=== PATIENT | male | born 1975 | race Caucasian/White ===

== ENCOUNTER 2018-07-22 21:40 | Observation (INO) | payer SELFPAY ==
[~2018-07-22] VITALS: Ht 182.9 cm; Wt 97.5 kg
[2018-07-22] MEDS ORDERED: ONDANSETRON HCL INJ 2MG/ML 2ML 2 MG/ML VIAL IV STA (22:19)
[2018-07-22] MEDS ORDERED: MORPHINE SULFATE INJ 4 MG/ML INJ 1ML IV PRN (22:30)
[2018-07-23] VITALS (9 sets, daily range): BP systolic 136–160; BP diastolic 75–95
--- NOTE | 2018-07-23 00:11 | Diagnostic Imaging Report ---
EXAM: CT Chest without and WITH contrast 07/22/2018 12:00 AM INDICATION: Chest pain radiating to the back. Concern for dissection. COMPARISON: None TECHNIQUE: Chest was scanned utilizing a multidetector helical scanner from the lung apex through the level of the adrenal glands without and with administration of IV contrast. Coronal and sagittal reformations were obtained. Dissection protocol was performed. IV CONTRAST: 100 mL of Isovue-370 RADIATION DOSE: Total DLP: 1694.03 mGy*cm Estimated effective dose: (DLP x 0.014 x size factor) mSv COMPLICATIONS: None 3-D reconstructions are available at this time due to the lack of software; [facility] FINDINGS: LINES/ TUBES: None. LUNGS AND AIRWAYS: The lungs are unremarkable. No filling defects within the pulmonary arterial system to the segmental level. Bilateral dependent atelectasis. Airways are normal. PLEURA: The pleural spaces are clear. HEART AND MEDIASTINUM: The thyroid gland is normal. Mildly prominent left hilar lymph node measuring 1.5 x 1.0 cm on images 60 series 3. Mildly prominent subcarinal lymph nodes. The heart is normal in size. The left ventricular myocardium is somewhat prominent with the intraventricular septum measuring up to 2.4 cm in thickness on axial images 75 series 3. There is prominence of the papillary muscles. There is no pericardial effusion. The aorta is normal in caliber without dissection. UPPER ABDOMEN: Limited non-contrast views of the upper abdomen show no abnormality within the visualized liver, spleen, pancreas, or kidneys. The adrenal glands are normal. BONES: No acute osseous abnormality. Reconstruction artifact on the sagittal scans, with abnormal appearance of the sternal manubrium. Lower thoracic Schmorl nodes. SOFT TISSUES: Unremarkable. IMPRESSION: 1. No acute thoracic anomaly. No evidence of aortic dissection as per clinical query. 2. Concern for left ventricular hypertrophy. Recommend cardiology consultation for possible further evaluation with echocardiogram. 3. Mild subcarinal and left hilar lymphadenopathy, possibly reactive Signed by: Dr. Jennifer Fitzpatrick M.D. on 07/22/2018 11:54 PM
[2018-07-23] MEDS ORDERED: HYDRALAZINE HCL 20 MG/ML VIAL IV ONE (00:31)
--- OUTSIDE RECORDS SUMMARY | 2018-07-23 00:56 | XMS REPORT ---
Author Author [facility] Address Unknown Phone Unavailable Care Team Providers Care Marketing Account Manager Name Role Phone Lubna FLORES Unavailable Unavailable Problems This patient has no known problems. Allergies, Adverse Reactions, Alerts This patient has no known allergies or adverse reactions. Medications This patient has no known medications. Results Test Description Test Time Test Comments Text Results Atomic Results Result Comments CT ANGIO CHEST-HOPD 2018-07-22 23:41:00 [place] [address] Patient Name: ANTHONY CONLEY MR #: [id number] : 1975 Age/Sex: 42/M Req #: [id number] Adm Physician: Ordered by: PARAM FLORES MD Report #: [id number] Location: [facility] Room/Bed: Procedure: [id number] HOPD/CT ANGIO CHEST-HOPD Exam Date: 07/22/18 Exam Time: 2301 REPORT STATUS: Signed EXAM: CT Chest without and WITH contrast 07/22/2018 12:00 AM INDICATION: Chest pain radiating to the back. Concern for dissection. COMPARISON: None TECHNIQUE: Chest was scanned utilizing a multidetector helical scanner from the lung apex through the level of the adrenal glands without and with administration of IV contrast. Coronal and sagittal reformations were obtained. Dissection protocol was performed. IV CONTRAST: 100 mL of Isovue-370 RADIATION DOSE: Total DLP: 1694.03 mGy*cm Estimated effective dose: (DLP x 0.014 x size factor) mSv COMPLICATIONS: None 3-D reconstructions are available at this time due to the lack of software; [facility] FINDINGS: LINES/ TUBES: None. LUNGS AND AIRWAYS: The lungs are unremarkable. No filling defects within the pulmonary arterial system to the segmental level. Bilateral dependent atelectasis. Airways are normal. PLEURA: The pleural spaces are clear. HEART AND MEDIASTINUM: The thyroid gland is normal. Mildly prominent left hilar lymph node measuring 1.5 x 1.0 cm on images 60 series 3. Mildly prominent subcarinal lymph nodes. The heart is normal in size. The left ventricular myocardium is somewhat prominent with the intraventricular septum measuring up to 2.4 cm in thickness on axial images 75 series 3. There is prominence of the papillary muscles. There is no pericardial effusion. The aorta is normal in caliber without dissection. UPPER ABDOMEN: Limited non-contrast views of the upper abdomen show no abnormality within the visualized liver, spleen, pancreas, or kidneys. The adrenal glands are normal. BONES: No acute osseous abnormality. Reconstruction artifact on the sagittal scans, with abnormal appearance of the sternal manubrium. Lower thoracic Schmorl nodes. SOFT TISSUES: Unremarkable. IMPRESSION: 1. No acute thoracic anomaly. No evidence of aortic dissection as per clinical query. 2. Concern for left v entricular hypertrophy. Recommend cardiology consultation for possible further evaluation with echocardiogram. 3. Mild subcarinal and left hilar lymphadenopathy, possibly reactive Signed by: Dr. Jennifer Anne M.D. on 07/22/2018 11:54 PM Dictated By: JOANNE ANNE MD, MD [id number] Transcribed By: SHADI on 07/22/18 7822 COPY TO: PARAM FLORES MD
--- NOTE | 2018-07-23 02:00 | NUR ---
PATIENT CAME VIA STRETCHER FROM OUTPATIENT. NO PAIN OR DISTRESS NOTED. CALL LIGHT WITHIN REACH.
[2018-07-23 03:18] LABS: CREATINE KINASE MB 3.9 ng/mL (0-5.0)
--- NOTE | 2018-07-23 07:45 | NUR ---
GAVE REPORT TO ONCOMING NURSE. NO PAIN OR DISCOMFORT. CALL LIGHT WITHIN REACH.
--- NOTE | 2018-07-23 11:20 | NUR ---
attempted to reach Dr Cedillo to report elevated troponin level, message left and awaiting call back for further instructions.
[2018-07-23 11:27] LABS: CREATINE KINASE MB 11.9 ng/mL (0-5.0)
[2018-07-23] MEDS ORDERED: ACETAMINOPHEN 325 MG TAB PO PRN (14:45)
[2018-07-23] MEDS ORDERED: ASPIRIN 81 MG CHEW TAB PO ONE (14:45)
[2018-07-23] MEDS ORDERED: HYDROCODONE/APAP 5MG-325MG TAB PO PRN (14:45)
[2018-07-23] MEDS: ENOXAPARIN SODIUM INJ 100 MG/ML SYR SC SCH ×2 (15:43→21:24)
[2018-07-23 15:47] LABS: BASOPHILS # (AUTO) 0.1 (0.0-0.1); BASOPHILS % 1.1 % (0.0-1.0); EOSINOPHILS # (AUTO) 0.1 (0.0-0.4); EOSINOPHILS % 1.8 % (0.0-6.0); HEMATOCRIT 42.1 % (38.2-49.6); HEMOGLOBIN 14.5 g/dL (14.0-18.0); LYMPHOCYTES # (AUTO) 2.3 (1.0-3.2); LYMPHOCYTES % 28.7 % (18.0-39.1); MEAN CORPUSCULAR HEMOGLOBIN 28.9 pg (28-32); MEAN CORPUSCULAR HGB CONC 34.4 g/dL (31-35); MONOCYTES # (AUTO) 0.6 (0.2-0.8); MONOCYTES % 7.1 % (4.4-11.3); NEUTROPHILS # (AUTO) 4.8 (2.1-6.9); PLATELET COUNT 339 x10e3/uL (140-360); RED BLOOD COUNT 5.01 x10e6/uL (4.3-5.7); RED CELL DISTRIBUTION WIDTH 13.2 % (11.7-14.4)
[2018-07-23 16:07] LABS: ANION GAP 9.8 mmol/L (8-16); BLOOD UREA NITROGEN 12 mg/dL (7-26); BUN/CREATININE RATIO 14 (6-25); CALCIUM 8.4 mg/dL (8.4-10.2); CARBON DIOXIDE 27 mmol/L (22-29); CHLORIDE 101 mmol/L (98-107); CREATININE, SERUM 0.85 mg/dL (0.72-1.25); EST GLOMERULAR FILTRATION RATE > 60 ML/MIN (60-); GLUCOSE 151 mg/dL (74-118); POTASSIUM 3.8 mmol/L (3.5-5.1); SODIUM 134 mmol/L (136-145)
[2018-07-23 16:20] LABS: CHOL/HDL RATIO 6.9 (3.9-4.7); CHOLESTEROL 268 MD/DL (0-199); HDL CHOLESTEROL 39 MG/DL (40-60); TRIGLYCERIDES 499 MG/DL (0-149)
[2018-07-23 16:39] LABS: THYROID STIMULATING HORMONE 0.738 uIU/mL (0.350-4.940)
--- NOTE | 2018-07-23 19:20 | NUR ---
rounded with welder 2nd shift nurse, patient aware of change. Call gregg within reach and bed in lowest position
--- NOTE | 2018-07-23 19:29 | NUR ---
Report received and walking rounds complete. Pt resting in bed and in no apparent distress. Pt family at bedside. All safety measures ensured and pt call gregg near.
[2018-07-23] MEDS ORDERED: ATORVASTATIN 20 MG TAB PO SCH (21:00)
[2018-07-23 21:02] LABS: CREATINE KINASE MB 7.5 ng/mL (0-5.0)
--- NOTE | 2018-07-23 21:15 | NUR ---
Pt took shower
[2018-07-23] MEDS: METOPROLOL SUCCINATE 25 MG TAB XL PO SCH (21:24)
--- NOTE | 2018-07-23 23:42 | History and Physical ---
CHIEF COMPLAINT: Chest pain. HISTORY OF PRESENT ILLNESS: This is a 42-year-old male, morbidly obese with known hypertension, very noncompliant with seeing a physician. He is also a chronic smoker and does not take any medications, was transferred from the [facility] due to complaints of chest pain that has been ongoing for the last two days. The patient with radiation to the left shoulder and arm. He reports he was pretty constant in pain. During my evaluation, he had no complaints of chest pain. No associated nausea or vomiting. He has never experienced any kind of chest pain like this before. He does not have any family history of any heart disease. The patient is seen and evaluated at bedside on the medical floor. Currently, he is doing well with no other issues at this time. His troponin was found to be elevated and Cardiology was consulted. REVIEW OF SYSTEMS: Pertinent Positive: Chest pain. Pertinent Negative: Denies any palpitation, nausea, vomiting, diarrhea, dysuria, hematuria, frequency, urgency, lightheadedness, dizziness, abdominal pain, headaches, shortness of breath, cough, congestion, fever, or any other complaints. Rest of 14-point review of systems has been reviewed with the patient and is negative. ALLERGIES: NO KNOWN DRUG ALLERGIES. HOME MEDICATIONS: Reports none. PAST MEDICAL HISTORY: Chronic smoker, hypertension, not on any medications. PAST SURGICAL HISTORY: Reports none. FAMILY HISTORY: Hypertension and diabetes. Family history of heart disease. SOCIAL HISTORY: He is a smoker and a social drinker. No drugs. PHYSICAL EXAMINATION: VITAL SIGNS: Temperature is 96.5, pulse 73, respiratory rate is 16, blood pressure 137/91, pulse ox 99% on room air. GENERAL: No acute distress. Alert and oriented x3. Cooperative on examination. HEENT: Head is normocephalic, atraumatic. Eyes, pupils equal, round, and reactive to light bilaterally. Extraocular movements are intact bilaterally. Throat, no evidence of erythema or exudate in the posterior pharynx. Has poor dentition. NECK: Supple. Good range of motion. PULMONARY: Clear to auscultation bilaterally. No wheezes, no rales, no rhonchi, no crackles appreciated. CARDIOVASCULAR: Positive S1, S2. No murmurs, rubs, or gallops appreciated. GI: Abdomen is soft, nondistended, and nontender to palpation. Bowel sounds present. MUSCULOSKELETAL: Strength is 5/5 throughout. LABORATORY DATA: Lab findings show CBC is pending. Chemistry has been ordered as well. CK is 189, CK-MB is 11.9. His troponin is 0.73. IMAGING STUDIES: CTA of the chest shows no evidence of aortic dissection. There is no evidence of any pulmonary embolism also seen on CTA of the chest. It shows some mild subcarinal left hilar adenopathy and . He will need outpatient followup with repeat CT or chest x-ray as an outpatient. Discussed with the patient. IMPRESSION: 1. Chest pain, likely to be typical in nature with [id number] myocardial infarction. 2. Chronic smoker. 3. Morbid obesity. 4. Hypertension. PLAN: At this time, his troponins were found to be positive. We will load him up with full-dose Lovenox at 1 mg/kg q.12 hours, given 325 of aspirin chewable x1, daily 81 mg of aspirin. Start on Lipitor. We will get lipid panel, hemoglobin A1c, and his TSH level. Cardiology has been consulted and notified as well. I discussed the findings with the patient at bedside with the nurse present. He verbalized understanding. I also ordered a 2D echo as well. MD RAMO Plummer/ELISEO /[id number]
[2018-07-24] VITALS (23 sets, daily range): BP systolic 131–205; BP diastolic 69–120
--- NOTE | 2018-07-24 00:57 | Consultation ---
DATE OF CONSULTATION: 07/23/2018 Cardiology Consultation CONSULTING PHYSICIAN: Agustín Hassan M.D., Interventional Cardiology. REASON FOR CONSULTATION: Chest pain. HISTORY OF PRESENT ILLNESS: Mr. Barajas is a 42-year-old man with history of hypertension, dyslipidemia and active smoking, who presents to [facility] via ER with complaints of stuttering chest discomfort ongoing for at least several weeks; however, worsening over the last 3 days. Episodes worsen with exertion as well as with deep inspiration and radiate to neck and back, described as pressure-like, moderate severity. He has noted significantly elevated blood pressure lately and has been noncompliant with his angiotensin receptor sheri presenting on initial admission with a blood pressure 200/108. He is currently symptom free. His desk monitor shows sinus rhythm. He has serial cardiac enzymes, shown peak of CK 189, CK-MB of 11.9, troponin I of 0.73 with most recent cardiac enzymes within normal range. His creatinine was 0.8. His triglycerides 499, his total cholesterol 268 with HDL of 39. His EKG shows sinus rhythm with left ventricular hypertrophy and repolarization abnormalities. A CT chest was done showing no acute thoracic abnormality. No evidence of aortic dissection. There was a concern for left ventricular hypertrophy per CT and mild subcarinal and left hilar lymphadenopathy, which was thin, possibly reactive. REVIEW OF SYSTEMS: A 12-system review is negative except for as noted above. ALLERGIES: NO KNOWN DRUG ALLERGIES. PAST MEDICAL HISTORY: Hypertension and dyslipidemia. SOCIAL HISTORY: Active smoker, a pack lasts approximately 3 days. Denies alcohol or drugs. FAMILY HISTORY: Significant for hypertension. PHYSICAL EXAMINATION: VITAL SIGNS: Temperature 96.3, heart rate 69, respiratory rate 16, blood pressure 136/75, and O2 saturation 98% on room air. GENERAL: In no acute distress, alert. NECK: No JVD. CHEST: Clear to auscultation. CARDIOVASCULAR: Regular rate and rhythm. Normal S1 and S2. No S3 or S4. ABDOMEN: Soft and nontender. EXTREMITIES: No edema. Warm distal extremities. MEDICATIONS: Cardiovascular medications reviewed. Lovenox 100 mg every 12 hours, atorvastatin 40 mg at bedtime, and aspirin 325 mg daily. LABORATORY DATA: Studies reviewed. Cardiac enzymes as described above, so the lipid panel as described above. TSH 0.7, sodium 134, potassium 3.8, chloride 101, bicarbonate 27, BUN 12, creatinine 0.85, and glucose 151. White blood cells 7.9, hemoglobin 14.5, and platelets 339. ASSESSMENT: 1. [id number] myocardial infarction versus type 2 myocardial infarction in the setting of hypertensive emergency. 2. Uncontrolled hypertension. 3. Dyslipidemia. 4. Active smoker. RECOMMENDATIONS: 1. Obtain echocardiogram. 2. Add beta-sheri and adjust antihypertensives. 3. Continue statin and aspirin. 4. Lovenox for now. 5. Discussed coronary angiography and possible coronary intervention. Over the ensuing hospital stay, we will arrange based on prestressed concrete laborer availability. Indications, alternatives, risks, and benefits have been discussed with the patient as well as with family members. MD SABRINA Wells/ELISEO /[id number]
[2018-07-24 05:52] LABS: CHOL/HDL RATIO 7.5 (3.9-4.7); CHOLESTEROL 276 MD/DL (0-199); HDL CHOLESTEROL 37 MG/DL (40-60); TRIGLYCERIDES 884 MG/DL (0-149)
--- NOTE | 2018-07-24 07:11 | NUR ---
Report given and walking rounds complete.
--- NOTE | 2018-07-24 07:30 | NUR ---
RN performed comprehensive assessment on patient. Alert and oriented x3 with the vital signs WNL. Patient reported no pain. Discussed with patient on diet regarding lowering the amount of fatty food consumption. Patient verbalized understanding. Patient reported no chest pain or any other health concerns.
[2018-07-24] MEDS: ENOXAPARIN SODIUM INJ 100 MG/ML SYR SC SCH (08:41)
[2018-07-24] MEDS: METOPROLOL SUCCINATE 25 MG TAB XL PO SCH (08:41)
[2018-07-24] MEDS ORDERED: ASPIRIN 325 MG TAB PO SCH (09:00)
[2018-07-24 10:33] LABS: AMPHETAMINES SCREEN,URINE NEGATIVE (NEGATIVE); BENZODIAZEPINES SCREEN,URINE NEGATIVE (NEGATIVE); PHENCYCLIDINE SCREEN,URINE NEGATIVE (NEGATIVE)
--- NOTE | 2018-07-24 12:30 | NUR ---
Dr. Cedillo at bedside, patient stated he has sleep apnea disregarding the real issue which is the possible heart attack. Patient called his mother to know which tests should be performed. Patient would like to go with the heart cath and echocardiogram.
--- NOTE | 2018-07-24 13:14 | NUR ---
Soto RN and Junior RN educated patient on proper dietary due to high triglycerides, low HDL, high LDL, and high cholesterol. Verbalized understanding. Need reinforcement on teaching.
--- NOTE | 2018-07-24 13:40 | NUR ---
GAVE PACKET OF INFORMATION WITH COMMUNITY [facility] FOR ASSISTANCE WITH LOW TO NO INCOME TO PATIENT. RESOURCES THAT PATIENT MAY BE ABLE TO FOLLOW UP UPON DISCHARGE. PT EDUCATED ON EACH RESOURCE AND UNDERSTANDING HOW TO FOLLOW UP TO SEE IF QUALIFIED FOR EACH RESOURCE.
[2018-07-24] MEDS ORDERED: SODIUM CHLORIDE 0.9% 250ML 250 ML IV ONE (14:45)
[2018-07-24] MEDS ORDERED: SODIUM CHLORIDE 0.9% 1000ML 1,000 ML IV SCH ×2 (14:45→19:23)
--- NOTE | 2018-07-24 14:49 | NUR ---
SOCIAL WORK INITIAL ASSESSMENT Blind Hooker to bedside to discuss plan of care with patient/family. CM/SW role and care transitions discussed. Anticipated discharge plan discussed along with duration of care. CM/SW discussed patients right to make decisions in care. CM/SW work hours given. Patient lives: HOUSE WITH FAMILY Admit/Transfer: VIA ED POA/Emergency contact: MOTHER ANTHONY [phone] Current/Previous Home Health: NONE PCP/Follow-up Care: [facility] Current/Previous DME: NONE Other Services: NONE Employment Status: [employer] Areas of Concerns: NONE Referral Needs: NONE Education Needs: NONE IMM/BLUNT given and signed (if applicable): NA Goal for discharge: RETURN TO COMMUNITY WITH RESOURCE PACKAGE CM/SW left business card at the bedside with contact information. Name and number was also written on the patients whiteboard. Patient verbalized understanding of discussion. CM will follow-up with ongoing discharge and transition of care needs.
--- NOTE | 2018-07-24 15:10 | NUR ---
Soto RN and Junior RN spoke with patient regarding the heart cath procedure due to reduced ejection fraction rate. Patient is placed NPO diet. Patient given chlorohexidine to clean self on wrists and groins. Patient signed the informed consent. Questions answered regarding procedure, risks, and benefits. No further questions asked.
--- NOTE | 2018-07-24 16:56 | Progress Note ---
DATE: 07/24/2018 Medicine Progress Note SUBJECTIVE: The patient is doing well today with no complaints. Denies any chest pain. Cardiology evaluated the patient . PHYSICAL EXAMINATION: VITAL SIGNS: Temperature 96, pulse 84, respiratory rate 16, blood pressure 132/76, and pulse ox 95% on room air. GENERAL: Not in acute distress. Alert and oriented x3. Cooperative on examination. HEENT: Head is normocephalic and atraumatic. Eyes, pupils equal, reactive to light bilaterally. Extraocular movements are intact bilaterally. Throat, no evidence of erythema or exudates in the posterior pharynx. Has poor dentition. NECK: Supple. Good range of motion. PULMONARY: Clear to auscultation bilaterally. No wheezing, rales, or rhonchi. No crackles appreciated. CARDIOVASCULAR: Positive S1, S2. No murmurs, rubs, or gallops appreciated. ABDOMEN: Soft, nondistended, and nontender to palpation. Bowel sounds present. MUSCULOSKELETAL: Strength is 5/5 throughout. No evidence of any muscle deficits on examination. No weakness appreciated. NEUROLOGICAL: Cranial nerves II through XII grossly intact. No evidence of any neurological deficits on exam. SKIN: Intact. Warm to touch. Good cap refill. PSYCHIATRIC: Normal affect and mood. EXTREMITIES: No edema. Good range of motion throughout. LAB: Findings show white count of 7.9, hemoglobin 14, hematocrit 42, and platelets of 339. Chemistries LDL is extremely high, unable to measure. Triglycerides were high. TSH was 0.65, hemoglobin A1c 6.7. Urine drug screen is negative. IMPRESSION: 1. Non-ST elevation myocardial infarction. 2. Chronic smoker. 3. Morbid obesity. 4. Hypertension. 5. Hyperlipidemia. 6. Medical noncompliance. PLAN: At this time, he is still on full-dose Lovenox, aspirin, and statin. Cardioprotective meds. His hemoglobin A1c is 6.7, he is prediabetic. recommendations by Cardiology. I discussed the case with the patient and nursing staff. 2D echo is pending. MD RAMO Plummer/MODMaribel /[id number]
[2018-07-24] MEDS ORDERED: HEPARIN SOD (PORCINE) 1000 UNIT/ML 30ML ONE (16:58)
[2018-07-24] MEDS ORDERED: MIDAZOLAM HCL 2 MG/2 ML VIAL ONE (16:59)
[2018-07-24] MEDS ORDERED: VERAPAMIL HCL 2.5 MG/ML 2 ML VIAL ONE (16:59)
[2018-07-24] MEDS ORDERED: FENTANYL CITRATE/PF 100MCG/2 ML INJ ONE ×2 (16:59→19:24)
[2018-07-24] MEDS ORDERED: LIDOCAINE HCL 2% LOCAL 20 ML VIAL ONE (16:59)
[2018-07-24] MEDS ORDERED: IOPAMIDOL 300MG/ML 100 ML INFUS..BTL IV ONE (17:00)
[2018-07-24] MEDS ORDERED: HEPARIN SOD/SOD CHLORIDE 2,000 ML ONE (17:00)
[2018-07-24] MEDS ORDERED: NITROGLYCERIN/D5W 200 MCG/ML 250 ML ONE (17:00)
[2018-07-24] MEDS ORDERED: TICAGRELOR 90 MG TABLET ONE (18:07)
[2018-07-24] MEDS ORDERED: ASPIRIN 325 MG TAB ONE (18:07)
[2018-07-24] MEDS ORDERED: IOPAMIDOL 370 MG/ML 200 ML INFUS..BTL INJ ONE (18:59)
--- NOTE | 2018-07-24 19:00 | NUR ---
Report received. Pt still off unit in surgery
--- NOTE | 2018-07-24 19:15 | NUR ---
Received to floating labor gang supervisor recovery room 9, s/p left heart cath with RCA intervention. Patient A,A,O x3, TR band to Right wrist, no drainage noted. Patient c/o chest discomfort 08/20. Dr. Hurtado at bedside, verbal order received to give Fentanyl 25 mcg IV now. BP 205/120, MD ordered to give Hydralazine 10 mg IV. No Hydralazine loaded in the pyxis, pharmacy notified. Patient voided 400CCs of clear yellow urine without difficulty.
--- NOTE | 2018-07-24 19:25 | NUR ---
Hydralazine 10 mg IV given as ordered.
[2018-07-24] MEDS ORDERED: CLOPIDOGREL BISULFATE 75 MG TAB PO ONE (19:30)
[2018-07-24] MEDS ORDERED: CLOPIDOGREL BISULFATE 75 MG TAB PO SCH (19:30)
[2018-07-24] MEDS ORDERED: HYDRALAZINE HCL 20 MG/ML VIAL ONE (21:00)
[2018-07-24] MEDS ORDERED: ATORVASTATIN 40 MG TAB PO SCH (21:00)
--- NOTE | 2018-07-24 21:10 | NUR ---
BP remains elevated at 170/100, Hydralazine 10 mg IV given as ordered.
--- NOTE | 2018-07-24 21:15 | NUR ---
Attempted to remove 2 MLs of air from TR band, bloody drainage noted. 2 MLs of air re-inserted into TR band, will continue to monitor.
--- NOTE | 2018-07-24 21:45 | NUR ---
2 MLs of air removed from TR band, no drainage noted.
--- NOTE | 2018-07-24 22:00 | NUR ---
2 MLs of air removed from TR band, no drainage noted.
--- NOTE | 2018-07-24 22:15 | NUR ---
2 MLs of air removed from TR band, no drainage noted.
--- NOTE | 2018-07-24 22:30 | NUR ---
2 MLs of air removed from TR band, no drainage noted.
--- NOTE | 2018-07-24 22:45 | NUR ---
2 MLs of air removed from TR band, no drainage noted.
--- NOTE | 2018-07-24 23:00 | NUR ---
Remaining 3 MLs of air removed from TR band, no drainage noted. TR band removed, gauze and tegaderm placed to site. Transported to room 186, report to VALENCIA Wadsworth.
--- NOTE | 2018-07-24 23:05 | NUR ---
Pt returned to unit. Pt A&O and in no apparent distress. Vitals stable and pt tele reading at NSR. Pt cath site to R radial arm clean, dry, and intact with splint in place. All safety measures ensured and pt call gregg near.
[2018-07-24] MEDS ORDERED: MORPHINE SULFATE INJ 4 MG/ML INJ 1ML IV PRN (23:45)
[2018-07-25 00:15] VITALS: BP 145/81
--- NOTE | 2018-07-25 03:04 | Progress Note ---
DATE: 07/24/2018 Cardiology Progress Note. SUBJECTIVE: No recurrent symptoms other than short-lived episode of chest discomfort this morning, lasting less than 10 minutes. OBJECTIVE: VITAL SIGNS: Temperature 96 degrees, heart rate 84, blood pressure 134/76, respiratory rate 16, O2 saturation 95%. GENERAL: No acute distress, alert. NECK: No JVD. CHEST: Clear to auscultation. CARDIOVASCULAR: Regular rate and rhythm. Normal S1, S2. ABDOMEN: Soft. EXTREMITIES: No edema. CARDIOVASCULAR MEDICATIONS: Reviewed. Atorvastatin 40 mg at bedtime, aspirin 325 mg daily, Lovenox 100 mg subcu q.12 hours on hold, metoprolol succinate 25 mg daily, clopidogrel 75 mg daily. LABORATORY DATA: Studies reviewed. Creatinine 0.8. Hemoglobin 14.5, platelets 339. Status post coronary angiography and RCA drug-eluting stent PCI. Of note, has residual LCx stenosis. ASSESSMENT: 1. Non-STEMI. 2. Hypertension. 3. Dyslipidemia. 4. Poor compliance. RECOMMENDATIONS: 1. Dual antiplatelet therapy. 2. Creatinine. 3. Beta sheri. 4. Smoking cessation. 5. Outpatient followup for staged coronary revascularization has been advised to the patient as well as family members. Okay to discharge in a.m. MD SABRINA Wells/ELISEO /[id number] MTDD
[2018-07-25 04:31] VITALS: BP 145/83
[2018-07-25 05:41] LABS: BASOPHILS # (AUTO) 0.1 (0.0-0.1); BASOPHILS % 0.7 % (0.0-1.0); EOSINOPHILS # (AUTO) 0.1 (0.0-0.4); EOSINOPHILS % 1.1 % (0.0-6.0); HEMATOCRIT 42.4 % (38.2-49.6); HEMOGLOBIN 14.7 g/dL (14.0-18.0); LYMPHOCYTES # (AUTO) 2.3 (1.0-3.2); LYMPHOCYTES % 21.3 % (18.0-39.1); MEAN CORPUSCULAR HEMOGLOBIN 28.7 pg (28-32); MEAN CORPUSCULAR HGB CONC 34.7 g/dL (31-35); MEAN CORPUSCULAR VOLUME 82.7 fL (81-99); MONOCYTES # (AUTO) 0.8 (0.2-0.8); MONOCYTES % 6.9 % (4.4-11.3); NEUTROPHILS # (AUTO) 7.6 (2.1-6.9); NEUTROPHILS % 69.5 % (38.7-80.0); PLATELET COUNT 339 x10e3/uL (140-360); RED BLOOD COUNT 5.13 x10e6/uL (4.3-5.7); RED CELL DISTRIBUTION WIDTH 13.1 % (11.7-14.4)
[2018-07-25 05:58] LABS: ANION GAP 13.6 mmol/L (8-16); BLOOD UREA NITROGEN 10 mg/dL (7-26); BUN/CREATININE RATIO 13 (6-25); CALCIUM 8.5 mg/dL (8.4-10.2); CARBON DIOXIDE 21 mmol/L (22-29); CHLORIDE 103 mmol/L (98-107); CREATININE, SERUM 0.78 mg/dL (0.72-1.25); EST GLOMERULAR FILTRATION RATE > 60 ML/MIN (60-); GLUCOSE 117 mg/dL (74-118); POTASSIUM 3.6 mmol/L (3.5-5.1); SODIUM 134 mmol/L (136-145)
--- NOTE | 2018-07-25 07:04 | NUR ---
Report given and walking rounds complete.
[2018-07-25 07:29] VITALS: BP 164/90
[2018-07-25] MEDS: METOPROLOL SUCCINATE 25 MG TAB XL PO SCH (08:07)
[2018-07-25] MEDS ORDERED: ASPIRIN 325 MG TAB PO SCH (09:00)
[2018-07-25] MEDS ORDERED: CLOPIDOGREL BISULFATE 75 MG TAB PO SCH (09:00)
[2018-07-25 11:25] VITALS: BP 147/80
--- NOTE | 2018-07-25 12:15 | Operative Report ---
DATE OF PROCEDURE: 07/24/2018 SURGEON: Agustín Hassan MD PROCEDURE INDICATION: Non-ST elevation myocardial infarction. PROCEDURES PERFORMED: 1. Left heart catheterization. 2. Selective coronary angiography. 3. Right coronary artery drug-eluting stent percutaneous coronary intervention. ESTIMATED BLOOD LOSS: Less than 15 mL. PROCEDURE COMPLICATIONS: None. PROCEDURE SUMMARY: After consent was obtained, the patient was prepped and draped in a sterile fashion. The right radial site was locally infiltrated with 2% lidocaine and access was obtained with a 5-Swedish outer diameter slender sheath. Nitroglycerin, heparin, and verapamil were administered via the sheath and TIG catheter was used for engagement of the left main, then the right coronary artery as well as across the aortic valve for hemodynamic measurements. For the interventional portion of this procedure, JR4 6-Swedish no side holes guide catheter was used. Intervention was performed as follows. Angiography initially revealed the followin. Left main is large in caliber with luminal irregularities. It gives an LAD and a circumflex. 2. The LAD has luminal irregularities throughout giving collaterals to the RPDA and RPLV. 3. The circumflex arises from the left main. It has 70% focal stenosis preceding an obtuse marginal and two left posterolateral branches. 4. The right coronary artery is dominant giving RV marginal and a terminal RPDA and RPLV that fills via collaterals from the left system. There is a 99% stenosis of the distal RCA at the crux level. 5. LV pressure was 149/8 with an end-diastolic pressure of 23. 6. The aortic pressure was 149/93. INTERVENTION: A JR4 6-Swedish guide catheter was used. A Runthrough wire was initially used to interrogate the area of stenosis, but due to inability to cross, it was exchanged for a Runthrough wire supported by 1.5 Emerge balloon. After successful maneuvering across the area of stenosis and positioning into the RPDA, predilatation was performed with a 1.5 x 15 to 12 atmospheres followed by a 2.0 x 12 Emerge predilatation to 18 atmospheres. This was followed by Synergy 2.5 mm x 16 mm drug-eluting stent deployed at the crux level. Additional postdilatation of the stent was performed with initially 3.0 x 6 NC Quantum to 18 atmospheres and then a 4.0 x 12 NC Quantum to 18 atmospheres. There was an overlapping area of residual proximal stenosis, which was covered with 3.5 x 16 mm Synergy overlapping drug-eluting stent deployed to 20 atmospheres. The RPLV ostium was somewhat pinched, which was treated with a 1.5 x 8 Emerge balloon to 6 atmospheres. Final angiography reveals ZAIRE 3 flow ZAIRE 1 flow and 0% residual stenosis from 99% initial. No flow-limiting dissections, no perforations. CONCLUSION: RCA drug-eluting stent PCI. RECOMMENDATIONS: Aggressive medical optimization, dual antiplatelet therapy, and consider at a later date staged intervention to circumflex. This has been discussed with the patient and family members, who have been advised on outpatient followup. MD SABRINA Wells/MODMaribel /[id number] MTDD
[2018-07-25] MEDS ORDERED: LIPITOR20 MG (13:41)
[2018-07-25] MEDS ORDERED: ASPIR 8181 MG PO (13:42)
[2018-07-25] MEDS ORDERED: LISINOPRIL2.5 MG PO (13:44)
[2018-07-25] MEDS ORDERED: METOPROLOL TART25 MG PO (13:44)
[2018-07-25] MEDS ORDERED: PLAVIX75 MG PO (13:45)
--- NOTE | 2018-07-25 15:25 | Progress Note ---
DATE: 07/25/2018 Cardiology Progress Note SUBJECTIVE: Denies chest pain or shortness of breath. Discussed recommendations and plan of care, addressed all questions, provided information on lifestyle optimization including medications and stressed importance of adherence to medications and establishing close followup as outpatient including for presence of residual disease to circumflex aspect. OBJECTIVE: VITAL SIGNS: Temperature 96.8, heart rate 75, blood pressure 147/80, respiratory rate 21, and O2 saturation 96% on room air. BMI is 29.1. GENERAL: In no acute distress, alert. NECK: No JVD. CHEST: Clear to auscultation. CARDIOVASCULAR: Regular rate and rhythm. Normal S1 and S2. No S3, no S4. ABDOMEN: Soft, nontender, nondistended. EXTREMITIES: No edema. MEDICATIONS: Cardiovascular medications reviewed. Clopidogrel 75 mg daily, metoprolol succinate 25 mg daily, atorvastatin 40 mg at bedtime, aspirin 325 mg daily. LABORATORY DATA: Studies reviewed. Potassium 3.6, creatinine 0.78. Hemoglobin 4.7, platelets 339, white blood cells 10.1. ASSESSMENT: 1. A 42-year-old presenting with non-ST elevation myocardial infarction now status post RCA drug-eluting stent and PCI with residual disease to circumflex. 2. Dyslipidemia. 3. Hypertension. 4. Smoker. RECOMMENDATIONS: 1. Dual antiplatelet therapy. 2. Beta-sheri. 3. GLORIA inhibitor. 4. Statin. 5. Smoking cessation counseling. 6. Outpatient followup advised. Okay to discharge from a cardiovascular standpoint. MD SABRINA Wells/ELISEO /[id number]
--- NOTE | 2018-07-25 20:42 | Discharge Summary ---
FINAL DISCHARGE DIAGNOSES: 1. Chest pain, status post left heart catheterization with right coronary artery drug-eluting stent placement and 70% left anterior descending artery disease. 2. Hyperlipidemia. 3. Hypertension. 4. Morbid obesity. 5. Medical noncompliance. 6. Chronic smoker. 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 PHYSICAL EXAMINATION: VITAL SIGNS: Temperature is 96.8, pulse 75, respiratory rate is 21, blood pressure 147/80, and pulse ox on room air. LAB FINDINGS: Show white count 10, hemoglobin 14, hematocrit 42, and platelets of 339. Chemistry, sodium 134, potassium 3.6, chloride 103, bicarb 21, anion gap of 13, BUN 10, creatinine 0.78, glucose is 170, calcium is 8.5. His troponins were elevated. His last one was 0.878 prior to heart catheterization. LDL was undetectable, triglycerides were 884. TSH was 0.65. Hemoglobin A1c 6.7. Urine drug screen was negative. MICROBIOLOGY: None. IMAGING STUDIES: CT angiogram of the chest showed no evidence of any pulmonary embolism or any evidence of aortic dissection. HOSPITAL COURSE: This is a 42-year-old male, came from an outside freestanding ER with complaints of chest pain. The patient was found to have elevated troponin, started on full-dose Lovenox, aspirin, and Cardiology consultation. The patient underwent left heart catheterization on 07/24/2018 and had right coronary artery stent placement, drug eluting. He has some mild disease throughout with 70% disease in the OM. The rest will be medical management according to the chart. The patient was started on aspirin and Plavix and cardioprotective medications. The patient had 2 stents placed according to the reports. He also had a 2D echo, showed an EF of 40%-45%. The patient did well post procedure with no complaints. His chest pain all resolved. The patient will be discharged on aspirin, Plavix, statin, GLORIA inhibitor, and beta-blockade. He was advised to follow up with Cardiology in about 2 weeks' time. He was advised to follow with the PCP in 1 week as well to get a referral. I educated him about the importance of taking his aspirin and Plavix, in which he was given prescriptions for and he verbalized understanding . On the day of discharge, vital signs stable, lab studies stable. The patient seen and evaluated, examined thoroughly on the day of discharge. The patient verbalized understanding and agreed with plan of care to follow up in 2 weeks' time. MEDICATIONS: See med reconciliation form. DISPOSITION: Home. CONDITION: Stable. DIET: Heart healthy. if any worsening symptoms, the patient was advised to come back to the ED for further evaluation. Discharge summary took greater than 35 minutes. MD RAMO Plummer/MODL /[id number]
== END 2018-07-25 14:24 | disposition home or self-care (01) ==
LOC: FSED 21:40 → ERHOLD 07-23 00:30 → IMCU 07-23 02:05
PROVIDERS: ADMIT Internal Medicine; ATTEND Internal Medicine
DX: I21.4 Non-ST elevation (NSTEMI) myocardial infarction (principal); I10 Essential (primary) hypertension; E66.01 Morbid (severe) obesity due to excess calories; Z91.19 Patient's noncompliance with other medical treatment and regimen; F17.210 Nicotine dependence, cigarettes, uncomplicated; E78.5 Hyperlipidemia, unspecified; I16.1 Hypertensive emergency; Z68.29 Body mass index [BMI] 29.0-29.9, adult
CPT/HCPCS: 36415 ×3; 71275; 80048 ×2; 80053; 80061 ×2; 80307; 81003; 82550; 82553; 83036 ×2; 84443 ×2; 84484; 85025 ×2; 92928; 93005 ×2; 93306; 93458; 99284; C1725 ×4; C1769; C1874; C1887 ×2; G0378 ×3; J0360 ×2; J1644; J1650 ×2; J2001; J2250; J2270; J7030 ×2; J7050; Q9967 ×2; 93454

== ENCOUNTER → 2018-08-15 | Day surgery (SDC) | payer BC ==
[2018-08-14 11:16] LABS: BASOPHILS # (AUTO) 0.1 (0.0-0.1); BASOPHILS % 1.1 % (0.0-1.0); EOSINOPHILS # (AUTO) 0.3 (0.0-0.4); EOSINOPHILS % 3.2 % (0.0-6.0); HEMATOCRIT 45.1 % (38.2-49.6); HEMOGLOBIN 15.6 g/dL (14.0-18.0); LYMPHOCYTES # (AUTO) 2.3 (1.0-3.2); LYMPHOCYTES % 26.8 % (18.0-39.1); MEAN CORPUSCULAR HEMOGLOBIN 28.9 pg (28-32); MEAN CORPUSCULAR HGB CONC 34.6 g/dL (31-35); MEAN CORPUSCULAR VOLUME 83.5 fL (81-99); MONOCYTES # (AUTO) 0.7 (0.2-0.8); MONOCYTES % 8.3 % (4.4-11.3); NEUTROPHILS # (AUTO) 5.1 (2.1-6.9); NEUTROPHILS % 60.1 % (38.7-80.0); PLATELET COUNT 386 x10e3/uL (140-360); RED CELL DISTRIBUTION WIDTH 12.9 % (11.7-14.4)
[2018-08-14 11:28] LABS: INR 0.93; PARTIAL THROMBOPLASTIN TIME 26.9 seconds (23.8-35.5)
[2018-08-14 11:34] LABS: ANION GAP 13.5 mmol/L (8-16); BLOOD UREA NITROGEN 13 mg/dL (7-26); BUN/CREATININE RATIO 14 (6-25); CARBON DIOXIDE 26 mmol/L (22-29); CHLORIDE 99 mmol/L (98-107); CREATININE, SERUM 0.93 mg/dL (0.72-1.25); EST GLOMERULAR FILTRATION RATE > 60 ML/MIN (60-); GLUCOSE 140 mg/dL (74-118); POTASSIUM 4.5 mmol/L (3.5-5.1); SODIUM 134 mmol/L (136-145)
[~2018-08-15] VITALS: Ht 182.9 cm; Wt 97.5 kg
[2018-08-15] VITALS (16 sets, daily range): BP systolic 121–161; BP diastolic 67–98
[~2018-08-15] MED LIST: ASPIR 8181 MG PO; ASPIRIN 325 MG TAB ONE; CLOPIDOGREL BISULFATE 75 MG TAB ONE; FENTANYL CITRATE/PF 100MCG/2 ML INJ ONE; HEPARIN SOD/SOD CHLORIDE 2,000 ML ONE; IOPAMIDOL 370 MG/ML 200 ML INFUS..BTL INJ ONE; LIDOCAINE HCL 2% LOCAL 20 ML VIAL ONE; LIPITOR20 MG PO; LISINOPRIL2.5 MG PO; METOPROLOL TART25 MG PO; METOPROLOL TART50 MG PO; MIDAZOLAM HCL 2 MG/2 ML VIAL ONE; PLAVIX75 MG PO; SODIUM CHLORIDE 0.9% 1000ML 1,000 ML ONE; VERAPAMIL HCL 2.5 MG/ML 2 ML VIAL ONE
--- NOTE | 2018-08-15 10:40 | NUR ---
1040 Received pt form cath report from Myra Carnes, handoff. Rm #9 Identifierx2. LHC RT Tr band approach. Dr Jarrell Fix Circflx. Back to baseline orientation. 13cc TR band. Titration at 12noon ok. Iv infusing well no signs infiltration. Abdomen soft and non tender denies necessity to defecate or urinate.Bilater femoral pulses present PD/DP No gross issues with pain,pallor,pressure or dysrhythmia. Reviewed POC with family.DC in 4hrs 1430pm. mando/ian
--- NOTE | 2018-08-15 11:44 | Operative Report ---
DATE OF PROCEDURE: 08/15/2018 SURGEON: Agustín Hassan MD PROCEDURE INDICATION: Unstable angina in patient with multivessel CAD status post recent PCI with persistent angina pectoris. PROCEDURE PERFORMED: 1. Coronary angiography. 2. Circumflex drug-eluting stent PCI with a 2.5 x 12 Synergy drug-eluting stent. PROCEDURE COMPLICATIONS: None. ESTIMATED BLOOD LOSS: Less than 15 mL. PROCEDURE IN DETAIL: Consent was obtained, the patient was prepped and draped and the right radial site was accessed with 5-Lithuanian slender sheath after local administration of lidocaine. Heparin was used for an ACT over 250, the patient was preloaded with aspirin and Plavix. XB3.5 no side holes 6-Lithuanian guide catheter was used for engagement of left main. The right coronary artery was not evaluated on this angiogram. Selective angiography revealed patent LAD, ramus intermedius, and luminal irregularities in the left main with circumflex with 30% followed by 90% focal stenosis prior to giving an obtuse marginal and distal circumflex. The obtuse marginal was targeted with primary stenting, Synergy 2.5 x 12 drug-eluting stent was deployed to 10 atmospheres achieving excellent result about 0% residual stenosis, ZAIRE-3 flow, no flow-limiting dissections or perforations. CONCLUSION: Drug-eluting stent PCI of circumflex with 2.5 x 12 Synergy drug-eluting stent. RECOMMENDATIONS: 1. Aspirin and Plavix. 2. Wean TR patch. 3. IV fluids. 4. If no complications arise, discharge later home today. MD KleinV/NITHINL /[id number]
--- NOTE | 2018-08-15 14:30 | NUR ---
1430 TR band titration was successful. Sterile 2x2 and Coban dressing with arm splint. Reviewed POC with family and pt and has copies of DC plans as well as diagram. Iv was removed. Site healthy dressing with Coban intact. Dad here will drive pt home . Discharged to car with [facility] RN escort Hascopies of POC aware of importance of followup care. No gross issues with pain,pallor,pressure or dysthymia. ds/rn
--- NOTE | 2018-08-16 13:30 | Operative Report ---
DATE OF PROCEDURE: 08/15/2018 SURGEON: Agustín Hassan MD INDICATIONS: Unstable angina, history of coronary artery disease, multivessel, staged circumflex PCI procedure. COMPLICATIONS: None. ESTIMATED BLOOD LOSS: Less than 15 mL. PROCEDURES PERFORMED: 1. Coronary angiography. 2. Circumflex drug-eluting stent percutaneous coronary intervention. PROCEDURE SUMMARY: After consent was obtained, the patient was prepped and draped in a sterile fashion. Right radial site was locally infiltrated with 2% lidocaine and a 5-Bulgarian slender sheath was advanced. XB3.0 no side-holes guide catheter 6- Bulgarian was used for intervention. Heparin was used to maintain an ACT over 250. Aspirin and Plavix were used for free loading. Runthrough wire was used to cross the area of stenosis and place into the distal obtuse marginal and primary stenting of circumflex area of stenosis was performed with [employer] Synergy drug-eluting stent 2.5 x 12 mm deployed to 12 atmospheres. Preprocedure target lesion was type B 90% stenosis, ZAIRE-3 flow preceding bifurcation of an obtuse marginal at the distal circumflex. Post interventional stenosis was 0%, ZAIRE-3 flow. No flow-limiting dissections. No perforations. Good step-up and step-down and excellent landing proximal to bifurcation. PROCEDURE FINDINGS: 1. Left main with luminal irregularities giving an LAD, ramus intermedius, and circumflex. 2. The LAD has mild disease less than 30% throughout giving diagonal and septal creative strategist. 3. The ramus intermedius has [id number] disease less than 40%. 4. The circumflex has 30% and then 90% tandem lesions, which were covered with stent as described above distal to the areas of stenosis, an obtuse marginal of medium caliber and distal circumflex of small to medium in caliber arise. 5. The right coronary artery was not evaluated on this angiogram. Please refer to previous report for further details of this. CONCLUSION: Circumflex drug-eluting stent and PCI with a 2.5 x 12 - Synergy drug-eluting stent. RECOMMENDATIONS: Continue dual antiplatelet therapy. Wean TR band and IV fluids. Aggressive risk factor optimization. Follow up in the office in 4 to 6 weeks. MD SABRINA Wells/MODL /[id number] MTDD
== END | disposition home or self-care (01) ==
LOC: CATH LAB 08:22
PROVIDERS: ATTEND Internal Medicine Cardiovascular Disease
DX: I25.110 Atherosclerotic heart disease of native coronary artery with unstable angina pectoris (principal); I10 Essential (primary) hypertension; E78.5 Hyperlipidemia, unspecified; E55.9 Vitamin D deficiency, unspecified; F17.210 Nicotine dependence, cigarettes, uncomplicated; Z01.810 Encounter for preprocedural cardiovascular examination; Z01.812 Encounter for preprocedural laboratory examination; Z79.02 Long term (current) use of antithrombotics/antiplatelets; Z79.82 Long term (current) use of aspirin; Z82.49 Family history of ischemic heart disease and other diseases of the circulatory system
CPT/HCPCS: 36415; 80048; 85025; 85610; 85730; 92928; 93005; 93454; C1769; C1874; C1887; J2001; J2250; J7030; Q9967

== ENCOUNTER 2019-04-11 13:19 | Emergency (ER) | payer BC ==
[~2019-04-11] VITALS: Ht 182.9 cm; Wt 95.3 kg
[~2019-04-11 13:19] MED LIST changes: -ASPIRIN 325 MG TAB ONE; -CLOPIDOGREL BISULFATE 75 MG TAB ONE; -FENTANYL CITRATE/PF 100MCG/2 ML INJ ONE; -HEPARIN SOD/SOD CHLORIDE 2,000 ML ONE; -IOPAMIDOL 370 MG/ML 200 ML INFUS..BTL INJ ONE; -LIDOCAINE HCL 2% LOCAL 20 ML VIAL ONE; -MIDAZOLAM HCL 2 MG/2 ML VIAL ONE; -SODIUM CHLORIDE 0.9% 1000ML 1,000 ML ONE; -VERAPAMIL HCL 2.5 MG/ML 2 ML VIAL ONE
[2019-04-11] MEDS ORDERED: IPRATROPIUM BROMIDE 0.02% 2.5 ML NEB NEB STA (13:47)
[2019-04-11] MEDS ORDERED: ALBUTEROL SULF 0.083% NEB SOLN 3 ML NEB NEB STA (13:47)
[2019-04-11] MEDS ORDERED: DEXAMETHASONE SOD PHOS 10 MG/1 ML VIAL IM ONE (14:00)
[2019-04-11] MEDS ORDERED: ACETAMINOPHEN/CODEINE ELIX 120-12 MG/5 ML UDC NG ONE (14:00)
[2019-04-11] MEDS ORDERED: IBUPROFEN 600 MG TAB PO NR (14:00)
--- NOTE | 2019-04-11 14:07 | NUR ---
PATIENT TO ROOM 10
[2019-04-11 14:18] LABS: BASOPHILS # (AUTO) 0.1 (0.0-0.1); BASOPHILS % 0.6 % (0.0-1.0); EOSINOPHILS % 0.5 % (0.0-6.0); HEMOGLOBIN 14.1 g/dL (14.0-18.0); LYMPHOCYTES # (AUTO) 0.9 (1.0-3.2); LYMPHOCYTES % 10.6 % (18.0-39.1); MEAN CORPUSCULAR HEMOGLOBIN 29.4 pg (28-32); MEAN CORPUSCULAR HGB CONC 34.4 g/dL (31-35); MEAN CORPUSCULAR VOLUME 85.4 fL (81-99); MONOCYTES # (AUTO) 0.7 (0.2-0.8); MONOCYTES % 8.3 % (4.4-11.3); NEUTROPHILS # (AUTO) 6.6 (2.1-6.9); NEUTROPHILS % 79.6 % (38.7-80.0); PLATELET COUNT 283 x10e3/uL (140-360); RED CELL DISTRIBUTION WIDTH 14.5 % (11.7-14.4)
[2019-04-11 14:28] LABS: INR 0.96; PROTHROMBIN TIME 13.3 seconds (11.9-14.5)
[2019-04-11 14:29] LABS: PARTIAL THROMBOPLASTIN TIME 26.7 seconds (23.8-35.5)
[2019-04-11 14:38] LABS: ALANINE AMINOTRANSFERASE 37 IU/L (0-55); ALBUMIN 4.2 g/dL (3.5-5.0); ALBUMIN/GLOBULIN RATIO 1.4 (0.8-2.0); ALKALINE PHOSPHATASE 82 IU/L (40-150); ANION GAP 15.1 mmol/L (8-16); BLOOD UREA NITROGEN 8 mg/dL (7-26); BUN/CREATININE RATIO 9 (6-25); CALCIUM 9.4 mg/dL (8.4-10.2); CARBON DIOXIDE 24 mmol/L (22-29); CHLORIDE 99 mmol/L (98-107); CREATINE KINASE 187 IU/L (30-200); CREATININE, SERUM 0.88 mg/dL (0.72-1.25); EST GLOMERULAR FILTRATION RATE > 60 ML/MIN (60-); GLUCOSE 118 mg/dL (74-118); POTASSIUM 4.1 mmol/L (3.5-5.1); SODIUM 134 mmol/L (136-145)
--- NOTE | 2019-04-11 15:15 | Diagnostic Imaging Report ---
EXAMINATION: CHEST 2 VIEWS INDICATION: Coughing, abnormal chest x-ray ^ORDER PLACED BY ^[id number] ^1430 ^Y COMPARISON: CTA chest 07/22/2018 FINDINGS: PA and lateral views TUBES and LINES: None. LUNGS: Lungs are well inflated. There is no evidence of pneumonia or pulmonary edema. Mild diffuse bronchial wall thickening suggestive of chronic bronchitis. PLEURA: No pleural effusion or pneumothorax. HEART AND MEDIASTINUM: The heart is normal in size. Pulmonary arteries are mildly prominent. BONES AND SOFT TISSUES: No focal osseous lesions. Soft tissues are unremarkable. UPPER ABDOMEN: Unremarkable. IMPRESSION: No acute pulmonary process. Mildly prominent pulmonary arteries suggestive of pulmonary artery hypertension. Mild bronchial wall thickening suggestive of chronic bronchitis. Signed by: Dr. Jose Lugo MD on 04/11/2019 3:12 PM
--- NOTE | 2019-04-11 15:18 | NUR ---
PATIENT RECEIVING BREATHING TX
== END 2019-04-11 16:09 | disposition home or self-care (01) ==
LOC: ER 13:31
DX: R50.9 Fever, unspecified (principal); R05 Cough; J20.8 Acute bronchitis due to other specified organisms; I10 Essential (primary) hypertension; E78.5 Hyperlipidemia, unspecified; I25.2 Old myocardial infarction; Z95.5 Presence of coronary angioplasty implant and graft
CPT/HCPCS: 36415; 71046; 80053; 82550; 82553; 83605; 84484; 85025; 85610; 85730; 87040; 87400; 93005; 99284; J1100

== ENCOUNTER 2020-05-25 13:02 | Inpatient (IN) | payer SELFPAY ==
[~2020-05-25] VITALS: Ht 182.9 cm; Wt 101.7 kg
[2020-05-25 14:35] LABS: BASOPHILS # (AUTO) 0.1 (0.0-0.1); BASOPHILS % 1.1 % (0.0-1.0); EOSINOPHILS # (AUTO) 0.1 (0.0-0.4); EOSINOPHILS % 1.1 % (0.0-6.0); HEMATOCRIT 45.6 % (38.2-49.6); HEMOGLOBIN 14.1 g/dL (14.0-18.0); LYMPHOCYTES # (AUTO) 2.2 (1.0-3.2); LYMPHOCYTES % 25.3 % (18.0-39.1); MEAN CORPUSCULAR HEMOGLOBIN 25.7 pg (28-32); MEAN CORPUSCULAR HGB CONC 30.9 g/dL (31-35); MEAN CORPUSCULAR VOLUME 83.1 fL (81-99); MONOCYTES # (AUTO) 0.8 (0.2-0.8); MONOCYTES % 8.9 % (4.4-11.3); NEUTROPHILS # (AUTO) 5.5 (2.1-6.9); NEUTROPHILS % 62.9 % (38.7-80.0); PLATELET COUNT 312 x10e3/uL (140-360); RED BLOOD COUNT 5.49 x10e6/uL (4.3-5.7); RED CELL DISTRIBUTION WIDTH 16.1 % (11.7-14.4)
[2020-05-25 14:45] LABS: INR 1.13; PROTHROMBIN TIME 15.2 seconds (11.9-14.5)
[2020-05-25 14:46] LABS: PARTIAL THROMBOPLASTIN TIME 26.2 seconds (23.8-35.5)
[2020-05-25 14:59] LABS: ALANINE AMINOTRANSFERASE 15 IU/L (0-55); ALBUMIN 3.8 g/dL (3.5-5.0); ALBUMIN/GLOBULIN RATIO 1.5 (0.8-2.0); ALKALINE PHOSPHATASE 80 IU/L (40-150); ANION GAP 12.6 mmol/L (8-16); BLOOD UREA NITROGEN 14 mg/dL (7-26); BUN/CREATININE RATIO 11 (6-25); CALCIUM 8.9 mg/dL (8.4-10.2); CARBON DIOXIDE 26 mmol/L (22-29); CHLORIDE 107 mmol/L (98-107); CREATINE KINASE 118 IU/L (30-200); CREATININE, SERUM 1.26 mg/dL (0.72-1.25); EST GLOMERULAR FILTRATION RATE > 60 ML/MIN (60-); GLUCOSE 110 mg/dL (74-118); POTASSIUM 3.6 mmol/L (3.5-5.1); SODIUM 142 mmol/L (136-145)
[2020-05-25 16:40] LABS: CLARITY,URINE SL CLOUDY (CLEAR); COLOR,URINE YELLOW (YELLOW); KETONES,URINE NEGATIVE (NEGATIVE); LEUKOCYTE ESTERASE ,URINE NEGATIVE (NEGATIVE); NITRITE,URINE NEGATIVE (NEGATIVE); PROTEIN,URINE DIPSTICK 1+ (NEGATIVE); URINE UROBILINOGEN 0.2 mg/dL (0.2 - 1)
[2020-05-25 16:54] LABS: BACTERIA,URINE FEW /HPF; EPITHELIAL CELLS,URINE FEW /LPF
[2020-05-25] MEDS: FUROSEMIDE INJ 10 MG/ML 4 ML VIAL IV SCH (20:04)
[2020-05-25] MEDS ORDERED: ASPIRIN 81 MG CHEW TAB PO ONE (20:45)
[2020-05-25] MEDS ORDERED: METOPROLOL TARTRATE 50 MG TAB PO ONE (20:45)
[2020-05-25] MEDS ORDERED: ATORVASTATIN 20 MG TAB PO ONE (20:45)
[2020-05-25] MEDS ORDERED: LISINOPRIL 2.5 MG TAB PO ONE (20:45)
[2020-05-25] MEDS ORDERED: POLYETHYLENE GLYCOL 3350 17 GM PACK PO PRN (21:15)
[2020-05-25] MEDS ORDERED: ACETAMINOPHEN 325 MG TAB PO PRN (21:15)
[2020-05-25] MEDS ORDERED: TEMAZEPAM 7.5 MG CAP PO PRN (21:15)
[2020-05-25] MEDS ORDERED: METOPROLOL TARTRATE INJ 1 MG/ML VIAL IV PRN (21:15)
[2020-05-25] MEDS ORDERED: ONDANSETRON HCL INJ 2MG/ML 2ML 2 MG/ML VIAL IV PRN (21:15)
[2020-05-25 22:00] VITALS: BP 138/98
[2020-05-25 22:22] VITALS: BP 138/98
[2020-05-25] MEDS ORDERED: [UNRECOGNIZED DRUG - OTHER] (22:23)
[2020-05-25] MEDS ORDERED: [UNRECOGNIZED DRUG - OTHER] PO (22:23)
[2020-05-25] MEDS: FAMOTIDINE 20 MG/2 ML VIAL IV SCH (22:35)
[2020-05-25 23:58] VITALS: BP 114/84
[2020-05-26] VITALS (8 sets, daily range): BP systolic 104–126; BP diastolic 74–93
[2020-05-26 01:55] LABS: CREATINE KINASE MB 2.4 ng/mL (0-5.0)
[2020-05-26 06:12] LABS: BASOPHILS # (AUTO) 0.1 (0.0-0.1); BASOPHILS % 1.1 % (0.0-1.0); EOSINOPHILS # (AUTO) 0.1 (0.0-0.4); EOSINOPHILS % 1.3 % (0.0-6.0); HEMATOCRIT 46.7 % (38.2-49.6); HEMOGLOBIN 14.4 g/dL (14.0-18.0); LYMPHOCYTES % 30.5 % (18.0-39.1); MEAN CORPUSCULAR HEMOGLOBIN 25.8 pg (28-32); MEAN CORPUSCULAR HGB CONC 30.8 g/dL (31-35); MEAN CORPUSCULAR VOLUME 83.7 fL (81-99); MONOCYTES # (AUTO) 0.9 (0.2-0.8); MONOCYTES % 9.4 % (4.4-11.3); NEUTROPHILS # (AUTO) 5.7 (2.1-6.9); NEUTROPHILS % 57.2 % (38.7-80.0); PLATELET COUNT 353 x10e3/uL (140-360); RED BLOOD COUNT 5.58 x10e6/uL (4.3-5.7); RED CELL DISTRIBUTION WIDTH 16.7 % (11.7-14.4)
[2020-05-26] MEDS ORDERED: TEMAZEPAM 15 MG CAP PO PRN (06:30)
[2020-05-26 06:38] LABS: ALANINE AMINOTRANSFERASE 16 IU/L (0-55); ALBUMIN 3.9 g/dL (3.5-5.0); ALBUMIN/GLOBULIN RATIO 1.6 (0.8-2.0); ALKALINE PHOSPHATASE 89 IU/L (40-150); BLOOD UREA NITROGEN 16 mg/dL (7-26); BUN/CREATININE RATIO 13 (6-25); CALCIUM 9.4 mg/dL (8.4-10.2); CARBON DIOXIDE 26 mmol/L (22-29); CHLORIDE 105 mmol/L (98-107); CREATININE, SERUM 1.28 mg/dL (0.72-1.25); EST GLOMERULAR FILTRATION RATE > 60 ML/MIN (60-); GLUCOSE 116 mg/dL (74-118); SODIUM 140 mmol/L (136-145)
[2020-05-26 06:53] LABS: CHOL/HDL RATIO 7.2 (3.9-4.7); MAGNESIUM 1.8 MG/DL (1.3-2.1); PHOSPHORUS 4.5 MG/DL (2.3-4.7)
[2020-05-26 07:27] LABS: THYROID STIMULATING HORMONE 2.933 uIU/mL (0.350-4.940)
[2020-05-26 07:36] LABS: CREATINE KINASE MB 2.3 ng/mL (0-5.0)
[2020-05-26] MEDS: FAMOTIDINE 20 MG/2 ML VIAL IV SCH ×2 (08:43→16:34)
[2020-05-26] MEDS: FUROSEMIDE INJ 10 MG/ML 4 ML VIAL IV SCH ×2 (08:43→16:34)
[2020-05-26] MEDS: DOCUSATE SODIUM 100 MG CAP PO SCH ×2 (08:44→16:34)
[2020-05-26] MEDS: ASPIRIN 81 MG CHEW TAB PO SCH (08:44)
[2020-05-26] MEDS: METOPROLOL TARTRATE 50 MG TAB PO SCH ×2 (08:45→16:34)
[2020-05-26] MEDS: LISINOPRIL 2.5 MG TAB PO SCH (08:46)
[2020-05-26] MEDS: CLOPIDOGREL BISULFATE 75 MG TAB PO SCH (08:46)
[2020-05-26 13:59] LABS: CREATINE KINASE MB 2.3 ng/mL (0-5.0)
[2020-05-26] MEDS: ATORVASTATIN 40 MG TAB PO SCH (20:30)
[2020-05-27] VITALS (7 sets, daily range): BP systolic 104–129; BP diastolic 60–91
[2020-05-27 06:23] LABS: ANION GAP 15.5 mmol/L (8-16); CREATININE, SERUM 1.31 mg/dL (0.72-1.25); POTASSIUM 3.5 mmol/L (3.5-5.1)
[2020-05-27] MEDS: ASPIRIN 81 MG CHEW TAB PO SCH (09:16)
[2020-05-27] MEDS: DOCUSATE SODIUM 100 MG CAP PO SCH ×2 (09:17→16:04)
[2020-05-27] MEDS: METOPROLOL TARTRATE 50 MG TAB PO SCH ×2 (09:18→16:04)
[2020-05-27] MEDS: LISINOPRIL 2.5 MG TAB PO SCH (09:18)
[2020-05-27] MEDS: CLOPIDOGREL BISULFATE 75 MG TAB PO SCH (09:18)
[2020-05-27] MEDS: FUROSEMIDE INJ 10 MG/ML 4 ML VIAL IV SCH ×2 (09:20→17:18)
[2020-05-27] MEDS: FAMOTIDINE 20 MG/2 ML VIAL IV SCH ×2 (09:20→16:04)
[2020-05-27] MEDS ORDERED: POTASSIUM CHLORIDE 20 MEQ TAB CR PO ONE (16:30)
[2020-05-27] MEDS: ATORVASTATIN 40 MG TAB PO SCH (21:09)
[2020-05-28] VITALS (9 sets, daily range): BP systolic 108–126; BP diastolic 76–90
[2020-05-28 05:53] LABS: BASOPHILS # (AUTO) 0.1 (0.0-0.1); BASOPHILS % 1.3 % (0.0-1.0); EOSINOPHILS # (AUTO) 0.1 (0.0-0.4); EOSINOPHILS % 1.4 % (0.0-6.0); HEMATOCRIT 48.8 % (38.2-49.6); HEMOGLOBIN 14.9 g/dL (14.0-18.0); LYMPHOCYTES % 30.9 % (18.0-39.1); MEAN CORPUSCULAR HEMOGLOBIN 25.4 pg (28-32); MEAN CORPUSCULAR HGB CONC 30.5 g/dL (31-35); MEAN CORPUSCULAR VOLUME 83.3 fL (81-99); MONOCYTES % 9.7 % (4.4-11.3); NEUTROPHILS # (AUTO) 5.5 (2.1-6.9); NEUTROPHILS % 56.3 % (38.7-80.0); PLATELET COUNT 377 x10e3/uL (140-360); RED BLOOD COUNT 5.86 x10e6/uL (4.3-5.7)
[2020-05-28 06:14] LABS: ANION GAP 15.8 mmol/L (8-16); CALCIUM 9.7 mg/dL (8.4-10.2); CREATININE, SERUM 1.35 mg/dL (0.72-1.25); POTASSIUM 3.8 mmol/L (3.5-5.1)
[2020-05-28] MEDS: FAMOTIDINE 20 MG/2 ML VIAL IV SCH ×2 (09:24→17:17)
[2020-05-28] MEDS: DOCUSATE SODIUM 100 MG CAP PO SCH ×2 (09:24→17:17)
[2020-05-28] MEDS: FUROSEMIDE INJ 10 MG/ML 4 ML VIAL IV SCH ×2 (09:24→17:17)
[2020-05-28] MEDS: ASPIRIN 81 MG CHEW TAB PO SCH (09:24)
[2020-05-28] MEDS: METOPROLOL TARTRATE 50 MG TAB PO SCH ×2 (09:25→17:17)
[2020-05-28] MEDS: LISINOPRIL 2.5 MG TAB PO SCH (09:25)
[2020-05-28] MEDS: CLOPIDOGREL BISULFATE 75 MG TAB PO SCH (09:25)
[2020-05-28] MEDS ORDERED: HYDROCODONE/APAP 7.5MG-325MG 1 EA TAB PO PRN (20:30)
[2020-05-28] MEDS ORDERED: MORPHINE SULFATE INJ 2 MG/ML SYR IV PRN (20:30)
[2020-05-28] MEDS: ATORVASTATIN 40 MG TAB PO SCH (21:00)
[2020-05-29 05:30] VITALS: BP 129/97
[2020-05-29 09:20] VITALS: BP 136/90
[2020-05-29] MEDS: FAMOTIDINE 20 MG/2 ML VIAL IV SCH ×2 (09:45→16:58)
[2020-05-29] MEDS: METOPROLOL TARTRATE 50 MG TAB PO SCH ×2 (09:45→17:01)
[2020-05-29] MEDS: FUROSEMIDE INJ 10 MG/ML 4 ML VIAL IV SCH ×2 (09:45→16:58)
[2020-05-29] MEDS: CLOPIDOGREL BISULFATE 75 MG TAB PO SCH (09:45)
[2020-05-29] MEDS: ASPIRIN 81 MG CHEW TAB PO SCH (09:45)
[2020-05-29] MEDS: DOCUSATE SODIUM 100 MG CAP PO SCH ×2 (09:45→16:58)
[2020-05-29 11:51] VITALS: BP 101/69
[2020-05-29 16:13] VITALS: BP 107/83
[2020-05-29 20:00] VITALS: BP 113/82
[2020-05-29] MEDS: ATORVASTATIN 40 MG TAB PO SCH (20:43)
[2020-05-29 20:53] VITALS: BP 113/82
[2020-05-30] VITALS (11 sets, daily range): BP systolic 100–128; BP diastolic 52–85
[2020-05-30] MEDS: FAMOTIDINE 20 MG/2 ML VIAL IV SCH ×2 (09:00→16:59)
[2020-05-30] MEDS: DOCUSATE SODIUM 100 MG CAP PO SCH ×2 (09:00→16:59)
[2020-05-30] MEDS: METOPROLOL TARTRATE 50 MG TAB PO SCH ×2 (09:00→17:00)
[2020-05-30] MEDS: CLOPIDOGREL BISULFATE 75 MG TAB PO SCH (09:00)
[2020-05-30] MEDS: FUROSEMIDE INJ 10 MG/ML 4 ML VIAL IV SCH ×2 (09:00→16:59)
[2020-05-30] MEDS: ASPIRIN 81 MG CHEW TAB PO SCH (09:00)
[2020-05-30] MEDS ORDERED: SODIUM CHLORIDE 0.9% 1000ML 1,000 ML IV SCH (09:30)
[2020-05-30] MEDS ORDERED: MIDAZOLAM HCL 2 MG/2 ML VIAL ONE (10:50)
[2020-05-30] MEDS ORDERED: FENTANYL CITRATE/PF 100MCG/2 ML INJ ONE (10:50)
[2020-05-30] MEDS ORDERED: LIDOCAINE HCL 2% LOCAL 20 ML VIAL ONE (10:50)
[2020-05-30] MEDS ORDERED: HEPARIN SOD/SOD CHLORIDE 2,000 ML ONE (10:51)
[2020-05-30] MEDS ORDERED: IOPAMIDOL 370 MG/ML 200 ML INFUS..BTL INJ ONE (10:51)
[2020-05-30] MEDS ORDERED: SODIUM CHLORIDE 0.9% 1000ML 1,000 ML ONE (10:51)
[2020-05-30] MEDS: ATORVASTATIN 40 MG TAB PO SCH (21:52)
[2020-05-31] VITALS: BP 120/95
[2020-05-31 04:00] VITALS: BP 123/83
[2020-05-31 05:26] LABS: BASOPHILS # (AUTO) 0.1 (0.0-0.1); BASOPHILS % 0.9 % (0.0-1.0); EOSINOPHILS # (AUTO) 0.1 (0.0-0.4); EOSINOPHILS % 0.8 % (0.0-6.0); HEMATOCRIT 45.6 % (38.2-49.6); HEMOGLOBIN 14.2 g/dL (14.0-18.0); LYMPHOCYTES % 17.5 % (18.0-39.1); MEAN CORPUSCULAR HEMOGLOBIN 25.5 pg (28-32); MEAN CORPUSCULAR HGB CONC 31.1 g/dL (31-35); MONOCYTES # (AUTO) 0.8 (0.2-0.8); NEUTROPHILS # (AUTO) 8.2 (2.1-6.9); NEUTROPHILS % 73.3 % (38.7-80.0); PLATELET COUNT 334 x10e3/uL (140-360); RED BLOOD COUNT 5.56 x10e6/uL (4.3-5.7); RED CELL DISTRIBUTION WIDTH 15.7 % (11.7-14.4)
[2020-05-31 05:36] LABS: INR 1.12; PROTHROMBIN TIME 15.1 seconds (11.9-14.5)
[2020-05-31 05:37] LABS: PARTIAL THROMBOPLASTIN TIME 28.1 seconds (23.8-35.5)
[2020-05-31 05:48] LABS: ANION GAP 15.7 mmol/L (8-16); CALCIUM 9.8 mg/dL (8.4-10.2); CREATININE, SERUM 1.31 mg/dL (0.72-1.25); POTASSIUM 3.7 mmol/L (3.5-5.1)
[2020-05-31 08:50] VITALS: BP 152/98
[2020-05-31 08:53] VITALS: BP 152/98
[2020-05-31] MEDS: CLOPIDOGREL BISULFATE 75 MG TAB PO SCH (09:05)
[2020-05-31] MEDS: ASPIRIN 81 MG CHEW TAB PO SCH (09:06)
[2020-05-31] MEDS: DOCUSATE SODIUM 100 MG CAP PO SCH (09:06)
[2020-05-31] MEDS: METOPROLOL TARTRATE 50 MG TAB PO SCH (09:15)
[2020-05-31] MEDS: FAMOTIDINE 20 MG/2 ML VIAL IV SCH (09:15)
[2020-05-31] MEDS: FUROSEMIDE INJ 10 MG/ML 4 ML VIAL IV SCH (09:15)
[2020-05-31 12:00] VITALS: BP 119/84
[2020-05-31] MEDS ORDERED: ENTRESTO 24 MG1 EACH PO (12:21)
[2020-05-31] MEDS ORDERED: POTASSIUM CHLO20 ME1 PO (12:31)
[2020-05-31] MEDS ORDERED: LASIX40 MG PO (12:31)
[2020-05-31] MEDS ORDERED: ONDANSETRON HCL 4 MG ORAL DISINTEGRATING TAB PO PRN (13:00)
[2020-05-31] MEDS ORDERED: METFORMIN HCL500 MG PO (13:07)
[2020-05-31] MEDS ORDERED: FAMOTIDINE 20 MG TAB PO SCH (16:30)
== END 2020-05-31 14:04 | disposition home or self-care (01) | DRG 286 ==
LOC: ER 14:22 → ERHOLD 18:31 → MED/SURG2 22:04
PROVIDERS: ADMIT Internal Medicine; ATTEND Internal Medicine
PROC: 4A023N7 Measurement of Cardiac Sampling and Pressure, Left Heart, Percutaneous Approach (ICD-10-PCS; principal; 2020-05-30)
PROC: B2111ZZ Fluoroscopy of Multiple Coronary Arteries using Low Osmolar Contrast (ICD-10-PCS; 2020-05-30)
PROC: B2151ZZ Fluoroscopy of Left Heart using Low Osmolar Contrast (ICD-10-PCS; 2020-05-30)
DX: I13.0 Hypertensive heart and chronic kidney disease with heart failure and stage 1 through stage 4 chronic kidney disease, or unspecified chronic kidney disease (principal); I50.43 Acute on chronic combined systolic (congestive) and diastolic (congestive) heart failure; R18.8 Other ascites; I31.3 Pericardial effusion (noninflammatory); N17.9 Acute kidney failure, unspecified; I25.2 Old myocardial infarction; E78.5 Hyperlipidemia, unspecified; Z95.810 Presence of automatic (implantable) cardiac defibrillator; Z95.5 Presence of coronary angioplasty implant and graft; Z87.891 Personal history of nicotine dependence; Z86.16 Personal history of COVID-19; Z83.3 Family history of diabetes mellitus; Z82.49 Family history of ischemic heart disease and other diseases of the circulatory system; I25.10 Atherosclerotic heart disease of native coronary artery without angina pectoris; Z72.820 Sleep deprivation; I34.0 Nonrheumatic mitral (valve) insufficiency; I25.118 Atherosclerotic heart disease of native coronary artery with other forms of angina pectoris; N18.9 Chronic kidney disease, unspecified; E11.9 Type 2 diabetes mellitus without complications; Z20.822 Contact with and (suspected) exposure to COVID-19
CPT/HCPCS: 36415; 71045; 76700; 80048; 80053; 80061; 81001; 82550; 82553; 82948; 83036; 83735; 83880; 84100; 84443; 84484; 85025; 85610; 85730; 87086; 93005; 93306; 93458; 93971; 97139; 99152; 99284; C1760; C1769; J1940; J2001; J2250; J3010; J7030; Q9967; U0002

== ENCOUNTER 2021-03-01 09:16 | Observation (INO) | payer BC, MEDICAID ==
[~2021-03-01] VITALS: Ht 182.9 cm; Wt 93.5 kg
[~2021-03-01 09:16] MED LIST changes: +ENTRESTO 24 MG1 EACH PO; +LASIX40 MG PO; +METFORMIN HCL500 MG PO; +POTASSIUM CHLO20 ME1 PO; +[UNRECOGNIZED DRUG - OTHER]; +[UNRECOGNIZED DRUG - OTHER] PO
[2021-03-01 09:40] LABS: BASOPHILS # (AUTO) 0.1 (0.0-0.1); EOSINOPHILS # (AUTO) 0.1 (0.0-0.4); EOSINOPHILS % 0.9 % (0.0-6.0); HEMATOCRIT 47.7 % (38.2-49.6); HEMOGLOBIN 15.4 g/dL (14.0-18.0); LYMPHOCYTES # (AUTO) 2.5 (1.0-3.2); LYMPHOCYTES % 23.5 % (18.0-39.1); MEAN CORPUSCULAR HEMOGLOBIN 25.3 pg (28-32); MEAN CORPUSCULAR HGB CONC 32.3 g/dL (31-35); MEAN CORPUSCULAR VOLUME 78.5 fL (81-99); MONOCYTES # (AUTO) 0.8 (0.2-0.8); MONOCYTES % 7.7 % (4.4-11.3); NEUTROPHILS % 66.1 % (38.7-80.0); PLATELET COUNT 343 x10e3/uL (140-360); RED BLOOD COUNT 6.08 x10e6/uL (4.3-5.7); RED CELL DISTRIBUTION WIDTH 16.7 % (11.7-14.4)
[2021-03-01 09:59] LABS: INR 1.04
[2021-03-01 10:00] LABS: PARTIAL THROMBOPLASTIN TIME 25.8 seconds (23.8-35.5)
[2021-03-01] MEDS ORDERED: NITROGLYCERIN 2% OINT 1 GM PKT TOP ONE (10:00)
[2021-03-01] MEDS ORDERED: METOPROLOL TARTRATE 25 MG TAB PO ONE (10:00)
[2021-03-01 10:05] LABS: ALBUMIN 3.9 g/dL (3.5-5.0); ALBUMIN/GLOBULIN RATIO 1.3 (0.8-2.0); ANION GAP 16.1 mmol/L (8-16); CREATININE, SERUM 1.29 mg/dL (0.72-1.25); MAGNESIUM 1.6 MG/DL (1.3-2.1); POTASSIUM 4.1 mmol/L (3.5-5.1)
[2021-03-01 10:13] LABS: CREATINE KINASE MB 3.6 ng/mL (0-5.0)
[2021-03-01 11:11] LABS: AMPHETAMINES SCREEN,URINE NEGATIVE (NEGATIVE); BENZODIAZEPINES SCREEN,URINE NEGATIVE (NEGATIVE); PHENCYCLIDINE SCREEN,URINE NEGATIVE (NEGATIVE)
[2021-03-01] MEDS ORDERED: ONDANSETRON HCL INJ 2MG/ML 2ML 2 MG/ML VIAL IV PRN (12:00)
[2021-03-01] MEDS ORDERED: Morphine 2mg Syringe 2 MG/ML SYR IV PRN (12:00)
[2021-03-01] MEDS: NITROGLYCERIN 2% OINT 1 GM PKT TOP SCH ×3 (12:00→23:53)
[2021-03-01] MEDS ORDERED: METOPROLOL TARTRATE 25 MG TAB PO SCH (12:00)
[2021-03-01] MEDS ORDERED: NITROGLYCERIN 0.4 MG SUBL SL PRN (12:00)
[2021-03-01] MEDS ORDERED: FUROSEMIDE INJ 10 MG/ML 4 ML VIAL IV ONE (13:00)
[2021-03-01] MEDS: FAMOTIDINE 20 MG/2 ML VIAL IV SCH ×2 (13:17→23:53)
[2021-03-01 13:30] VITALS: BP 104/82
[2021-03-01] MEDS ORDERED: FUROSEMIDE40 MG PO (13:52)
[2021-03-01] MEDS ORDERED: ZETIA10 MG PO (13:52)
[2021-03-01] MEDS ORDERED: LIPITOR20 MG PO (13:52)
[2021-03-01] MEDS ORDERED: ACETAMINOPHEN 325 MG TAB PO PRN (14:00)
[2021-03-01] MEDS ORDERED: DEXTROSE 50% SYRINGE 50 ML IV PRN (16:45)
[2021-03-01] MEDS ORDERED: METOPROLOL TARTRATE 50 MG TAB PO SCH (17:00)
[2021-03-01 18:14] LABS: CREATINE KINASE MB 3.3 ng/mL (0-5.0)
[2021-03-01 20:00] VITALS: BP 105/83
[2021-03-01] MEDS ORDERED: ATORVASTATIN 40 MG TAB PO SCH (21:00)
[2021-03-01] MEDS: FUROSEMIDE INJ 10 MG/ML 4 ML VIAL IV SCH (21:10)
[2021-03-01] MEDS: INSULIN LISPRO 100 UNIT/1 ML 3ML VIAL SQ SCH (23:43)
[2021-03-02] VITALS: BP 120/93
[2021-03-02 04:00] VITALS: BP 132/85
[2021-03-02] MEDS: NITROGLYCERIN 2% OINT 1 GM PKT TOP SCH (05:38)
[2021-03-02 06:03] LABS: BASOPHILS # (AUTO) 0.1 (0.0-0.1); BASOPHILS % 1.4 % (0.0-1.0); EOSINOPHILS # (AUTO) 0.2 (0.0-0.4); EOSINOPHILS % 1.8 % (0.0-6.0); HEMATOCRIT 44.5 % (38.2-49.6); HEMOGLOBIN 14.5 g/dL (14.0-18.0); LYMPHOCYTES # (AUTO) 2.8 (1.0-3.2); LYMPHOCYTES % 29.5 % (18.0-39.1); MEAN CORPUSCULAR HEMOGLOBIN 25.3 pg (28-32); MEAN CORPUSCULAR HGB CONC 32.6 g/dL (31-35); MEAN CORPUSCULAR VOLUME 77.8 fL (81-99); MONOCYTES # (AUTO) 0.8 (0.2-0.8); MONOCYTES % 8.8 % (4.4-11.3); NEUTROPHILS # (AUTO) 5.5 (2.1-6.9); PLATELET COUNT 324 x10e3/uL (140-360); RED BLOOD COUNT 5.72 x10e6/uL (4.3-5.7); RED CELL DISTRIBUTION WIDTH 16.2 % (11.7-14.4)
[2021-03-02 06:38] LABS: ALBUMIN 3.8 g/dL (3.5-5.0); ALBUMIN/GLOBULIN RATIO 1.5 (0.8-2.0); ANION GAP 14.2 mmol/L (8-16); CALCIUM 9.5 mg/dL (8.4-10.2); CHOL/HDL RATIO 7.7 (3.9-4.7); CREATININE, SERUM 1.21 mg/dL (0.72-1.25); POTASSIUM 3.2 mmol/L (3.5-5.1)
[2021-03-02 06:39] LABS: MAGNESIUM 1.6 MG/DL (1.3-2.1)
[2021-03-02 06:54] LABS: THYROID STIMULATING HORMONE 2.102 uIU/mL (0.350-4.940)
[2021-03-02 07:10] LABS: CREATINE KINASE MB 2.4 ng/mL (0-5.0)
[2021-03-02 07:56] VITALS: BP 126/84
[2021-03-02] MEDS ORDERED: PLAVIX75 MG PO (08:10)
[2021-03-02] MEDS ORDERED: Atorvastatin PO (08:10)
[2021-03-02] MEDS ORDERED: ASPIRIN CHEW81 MG PO (08:10)
[2021-03-02] MEDS ORDERED: FUROSEMIDE40 MG PO (08:11)
[2021-03-02] MEDS ORDERED: ZETIA10 MG PO (08:11)
[2021-03-02] MEDS ORDERED: METFORMIN HCL500 MG PO (08:11)
[2021-03-02] MEDS ORDERED: K DUR10 MEQ PO (08:11)
[2021-03-02] MEDS ORDERED: LOSARTAN POTASS25 MG PO (08:32)
[2021-03-02] MEDS: FUROSEMIDE INJ 10 MG/ML 4 ML VIAL IV SCH (08:32)
[2021-03-02] MEDS ORDERED: POTASSIUM CHLORIDE 10MEQ EA PO ONE (08:45)
[2021-03-02] MEDS ORDERED: CLOPIDOGREL BISULFATE 75 MG TAB PO SCH (09:00)
[2021-03-02] MEDS ORDERED: FUROSEMIDE 40 MG TAB PO SCH (09:00)
[2021-03-02] MEDS ORDERED: ASPIRIN 81 MG CHEW TAB PO SCH (09:00)
[2021-03-02] MEDS ORDERED: ASPIRIN 81 MG ENTERIC COATED PO SCH (09:00)
[2021-03-02] MEDS ORDERED: EZETIMIBE 10 MG TAB PO SCH (09:00)
[2021-03-02 09:17] VITALS: BP 126/84
[2021-03-02] MEDS: INSULIN LISPRO 100 UNIT/1 ML 3ML VIAL SQ SCH (10:24)
[2021-03-02] MEDS ORDERED: CARVEDILOL 3.125 MG TAB PO SCH (11:00)
[2021-03-02] MEDS ORDERED: LOSARTAN POTASSIUM 25 MG TAB PO SCH (11:00)
[2021-03-02] MEDS ORDERED: COZAAR25 MG PO (11:26)
[2021-03-02] MEDS ORDERED: COREG3.125 MG PO (11:26)
[2021-03-02 11:45] VITALS: BP 116/83
[2021-03-02] MEDS ORDERED: POTASSIUM CHLORIDE 10MEQ EA PO SCH (17:00)
== END 2021-03-02 12:00 | disposition home or self-care (01) ==
LOC: ER 09:25 → ERHOLD 12:20 → MED/SURG 13:26
PROVIDERS: ADMIT Internal Medicine; ATTEND Internal Medicine
DX: I13.0 Hypertensive heart and chronic kidney disease with heart failure and stage 1 through stage 4 chronic kidney disease, or unspecified chronic kidney disease (principal); I50.43 Acute on chronic combined systolic (congestive) and diastolic (congestive) heart failure; I34.0 Nonrheumatic mitral (valve) insufficiency; I25.10 Atherosclerotic heart disease of native coronary artery without angina pectoris; E78.5 Hyperlipidemia, unspecified; K76.0 Fatty (change of) liver, not elsewhere classified; I25.5 Ischemic cardiomyopathy; E11.22 Type 2 diabetes mellitus with diabetic chronic kidney disease; N18.30 Chronic kidney disease, stage 3 unspecified; N17.9 Acute kidney failure, unspecified; F17.200 Nicotine dependence, unspecified, uncomplicated; Z20.822 Contact with and (suspected) exposure to COVID-19; I25.2 Old myocardial infarction; Z95.5 Presence of coronary angioplasty implant and graft
CPT/HCPCS: 36415 ×2; 71045; 76705; 80053 ×2; 80061; 80307; 82550 ×2; 82553 ×2; 82948 ×2; 83036; 83690; 83735 ×2; 83880; 84100; 84443; 84484 ×2; 85025 ×2; 85379; 85610; 85730; 93005; 93306; 99284; G0378 ×2; J1940 ×2; J2270; J2405; U0002

== ENCOUNTER 2024-10-01 14:52 | Inpatient (IN) | payer MEDICAID, OTHER ==
[~2024-10-01] VITALS: Ht 182.9 cm; Wt 81.6 kg
[~2024-10-01 14:52] MED LIST changes: +ASPIRIN CHEW81 MG PO; +Atorvastatin PO; +COREG3.125 MG PO; +COZAAR25 MG PO; +FUROSEMIDE40 MG PO; +K DUR10 MEQ PO; +LOSARTAN POTASS25 MG PO; +ZETIA10 MG PO
[2024-10-01 14:55] VITALS: TEMP 98
[2024-10-01] MEDS ORDERED: SODIUM CHLORIDE 0.9% 1000ML 1,000 ML IV STA (15:30)
[2024-10-01 15:42] LABS: BASOPHILS # (AUTO) 0.1 (0.0-0.1); BASOPHILS % 1.1 % (0.0-1.0); EOSINOPHILS # (AUTO) 0.2 (0.0-0.4); HEMATOCRIT 21.6 % (38.2-49.6); LYMPHOCYTES # (AUTO) 1.2 (1.0-3.2); LYMPHOCYTES % 16.4 % (18.0-39.1); MEAN CORPUSCULAR HEMOGLOBIN 23.6 pg (28-32); MEAN CORPUSCULAR HGB CONC 29.6 g/dL (31-35); MEAN CORPUSCULAR VOLUME 79.7 fL (81-99); MONOCYTES # (AUTO) 0.8 (0.2-0.8); MONOCYTES % 10.8 % (4.4-11.3); NEUTROPHILS # (AUTO) 5.2 (2.1-6.9); NEUTROPHILS % 68.9 % (38.7-80.0); PLATELET COUNT 450 x10e3/uL (140-360); RED BLOOD COUNT 2.71 x10e6/uL (4.3-5.7); RED CELL DISTRIBUTION WIDTH 16.6 % (11.7-14.4); WHITE BLOOD COUNT 7.56 x10e3/uL (4.8-10.8)
[2024-10-01 15:45] LABS: HEMOGLOBIN 6.4 g/dL (14.0-18.0)
[2024-10-01 15:48] LABS: INR 1.36; PROTHROMBIN TIME 17.9 seconds (11.9-14.5)
[2024-10-01 15:57] LABS: ALBUMIN 4.5 g/dL (3.5-5.0); ALBUMIN/GLOBULIN RATIO 1.6 (0.8-2.0); ANION GAP 17.7 mmol/L (8-16); BILIRUBIN,TOTAL 0.6 mg/dL (0.2-1.2); CALCIUM 9.6 mg/dL (8.4-10.2); CREATININE, SERUM 1.23 mg/dL (0.72-1.25); POTASSIUM 4.7 mmol/L (3.5-5.1); TOTAL PROTEIN 7.4 g/dL (6.5-8.1)
[2024-10-01] MEDS ORDERED: FUROSEMIDE INJ 10 MG/ML 2 ML VIAL IV PRN (16:00)
[2024-10-01 16:02] LABS: TROPONIN I 0.031 ng/mL (0-0.300)
[2024-10-01 17:00] VITALS: PULSE 79; RESP 16
[2024-10-01] MEDS ORDERED: ONDANSETRON HCL INJ 2MG/ML 2ML 2 MG/ML VIAL IV PRN (17:00)
[2024-10-01] MEDS ORDERED: HYDRALAZINE HCL 20 MG/ML VIAL IV PRN (17:30)
[2024-10-01] MEDS ORDERED: ACETAMINOPHEN 325 MG TAB PO PRN (17:30)
[2024-10-01] MEDS ORDERED: DEXTROSE 50% SYRINGE 50 ML IV PRN (17:30)
[2024-10-01] MEDS ORDERED: DIPHENHYDRAMINE HCL 25 MG CAP PO PRN (17:30)
[2024-10-01] MEDS ORDERED: DOCUSATE SODIUM 100 MG CAP PO PRN (17:30)
[2024-10-01] MEDS ORDERED: ALBUTEROL/IPRATROPIUM 3 ML NEB NEB PRN (17:30)
[2024-10-01] MEDS ORDERED: LIDOCAINE 4% PATCH TP PRN (17:30)
[2024-10-01] MEDS ORDERED: BENZONATATE 100 MG CAP PO PRN (17:30)
[2024-10-01] MEDS ORDERED: POTASSIUM CHLORIDE 20 MEQ TAB CR PO PRN (17:30)
[2024-10-01] MEDS ORDERED: SIMETHICONE 80 MG CHEW PO PRN (17:30)
[2024-10-01 19:04] VITALS: BP 112/52; PULSE 71; RESP 18; TEMP 97.5; O2SAT 96
[2024-10-01 19:57] VITALS: BP 104/51; PULSE 70; RESP 21; TEMP 98; O2SAT 100
[2024-10-01 20:00] VITALS: BP 104/51; PULSE 70; RESP 21; TEMP 98; O2SAT 100
[2024-10-01] MEDS: SODIUM CHLORIDE 0.9% 250ML 250 ML IV ONE (20:40)
[2024-10-01] MEDS: MELATONIN 5 MG TABLET PO PRN (22:56)
[2024-10-02] VITALS (12 sets, daily range): BP systolic 100–135; BP diastolic 42–73; PULSE 62–79; RESP 16–18; TEMP 97.6–98.3; O2SAT 96–100
[2024-10-02] MEDS: SODIUM CHLORIDE 0.9% 500ML 500 ML ONE (00:10)
[2024-10-02 00:48] LABS: % IRON SATURATION 3 % (15-50); IRON 18 ug/dL (65-175); TOTAL IRON BINDING CAPACITY 640 ug/dL (261-478); TRANSFERRIN 457 mg/dL (174-364)
[2024-10-02] MEDS ORDERED: GLIMEPIRIDE4 MG PO (02:42)
[2024-10-02] MEDS ORDERED: WARFARIN SODIUM5 MG PO (02:42)
[2024-10-02] MEDS ORDERED: LOSARTAN POTASS50 MG PO (02:42)
[2024-10-02] MEDS ORDERED: PANTOPRAZOLE SO40 MG PO (02:42)
[2024-10-02] MEDS ORDERED: LOPRESSOR25 MG PO (02:42)
[2024-10-02] MEDS ORDERED: K-DUR10 MEQ PO (02:42)
[2024-10-02] MEDS ORDERED: EPLERENONE25 MG PO (02:42)
[2024-10-02] MEDS ORDERED: EZETIMIBE10 MG PO (02:42)
[2024-10-02] MEDS ORDERED: JARDIANCE25 MG PO (02:42)
[2024-10-02] MEDS ORDERED: ATORVASTATIN CA40 MG PO (02:42)
[2024-10-02 05:46] LABS: CLARITY,URINE CLEAR (CLEAR); COLOR,URINE YELLOW (YELLOW); GLUCOSE, URINE 500 (NEGATIVE); KETONES,URINE 1+ (NEGATIVE); LEUKOCYTE ESTERASE ,URINE NEGATIVE (NEGATIVE); NITRITE,URINE NEGATIVE (NEGATIVE); PH,URINE 5 (5 - 7); PROTEIN,URINE DIPSTICK NEGATIVE (NEGATIVE); URINE UROBILINOGEN 0.2 mg/dL (0.2 - 1)
[2024-10-02 05:47] LABS: BACTERIA,URINE FEW /HPF; BILIRUBIN,URINE NEGATIVE (NEGATIVE); EPITHELIAL CELLS,URINE FEW /LPF; RBC,URINE 0-5 /HPF (0-5); WBC,URINE (MAN) 0-5 /HPF (0-5)
[2024-10-02 14:13] LABS: BASOPHILS # (AUTO) 0.1 (0.0-0.1); BASOPHILS % 1.2 % (0.0-1.0); EOSINOPHILS # (AUTO) 0.1 (0.0-0.4); HEMATOCRIT 30.4 % (38.2-49.6); HEMOGLOBIN 9.6 g/dL (14.0-18.0); LYMPHOCYTES # (AUTO) 0.9 (1.0-3.2); LYMPHOCYTES % 14.1 % (18.0-39.1); MEAN CORPUSCULAR HEMOGLOBIN 25.3 pg (28-32); MEAN CORPUSCULAR HGB CONC 31.6 g/dL (31-35); MONOCYTES # (AUTO) 0.5 (0.2-0.8); MONOCYTES % 7.8 % (4.4-11.3); NEUTROPHILS # (AUTO) 4.5 (2.1-6.9); NEUTROPHILS % 74.2 % (38.7-80.0); PLATELET COUNT 353 x10e3/uL (140-360); RED CELL DISTRIBUTION WIDTH 15.3 % (11.7-14.4); WHITE BLOOD COUNT 6.03 x10e3/uL (4.8-10.8)
[2024-10-02 14:37] LABS: TROPONIN I 0.067 ng/mL (0-0.300)
[2024-10-02 14:51] LABS: ALBUMIN/GLOBULIN RATIO 1.6 (0.8-2.0); ANION GAP 14.2 mmol/L (8-16); BILIRUBIN,TOTAL 1.2 mg/dL (0.2-1.2); CALCIUM 8.8 mg/dL (8.4-10.2); CREATININE, SERUM 0.87 mg/dL (0.72-1.25); POTASSIUM 4.2 mmol/L (3.5-5.1); TOTAL PROTEIN 6.5 g/dL (6.5-8.1)
[2024-10-02 15:02] LABS: CHOL/HDL RATIO 4.2 (3.9-4.7); PHOSPHORUS 3.4 MG/DL (2.3-4.7)
[2024-10-02] MEDS ORDERED: LIDOCAINE HCL 2% LOCAL INJ 5 ML SDV VIAL INJ ONE (15:09)
[2024-10-02] MEDS ORDERED: PROPOFOL IV EMULSION 10 MG/ML 20 ML VIAL ONE (15:09)
[2024-10-02] MEDS ORDERED: FENTANYL CITRATE/PF 100MCG/2 ML INJ ONE (15:09)
[2024-10-02 15:22] LABS: THYROID STIMULATING HORMONE 2.221 uIU/mL (0.350-4.940)
[2024-10-02] MEDS ORDERED: IOPAMIDOL 370 MG/ML 100 ML INFUS..BTL INJ ONE (18:31)
[2024-10-02] MEDS ORDERED: SODIUM CHLORIDE 0.9% 100 ML ONE (18:31)
[2024-10-02] MEDS: SODIUM CHLORIDE 0.9% 250ML 250 ML ONE (19:26)
[2024-10-02] MEDS: SUCRALFATE 1 GM/10 ML SUSP PO SCH (21:09)
[2024-10-02] MEDS: WARFARIN SOD 5 MG TAB PO SCH (21:09)
[2024-10-02] MEDS: METOPROLOL TARTRATE 25 MG TAB PO SCH (21:10)
[2024-10-02] MEDS: HEPARIN 25,000 UNIT/D5W 250ML 25,000 UNIT in DEXTROSE 5% 250ML 250 ML IV SCH (21:16)
[2024-10-03] VITALS (11 sets, daily range): BP systolic 106–181; BP diastolic 64–74; PULSE 50–74; RESP 16–20; TEMP 97.9–98.7; O2SAT 96–99
[2024-10-03] MEDS: CYANOCOBALAMIN 1,000 MCG TAB PO ONE (01:31)
[2024-10-03 05:37] LABS: BASOPHILS # (AUTO) 0.1 (0.0-0.1); BASOPHILS % 0.7 % (0.0-1.0); EOSINOPHILS # (AUTO) 0.1 (0.0-0.4); EOSINOPHILS % 1.7 % (0.0-6.0); HEMATOCRIT 29.4 % (38.2-49.6); HEMOGLOBIN 9.1 g/dL (14.0-18.0); LYMPHOCYTES # (AUTO) 1.6 (1.0-3.2); MEAN CORPUSCULAR HEMOGLOBIN 25.1 pg (28-32); MONOCYTES # (AUTO) 0.7 (0.2-0.8); MONOCYTES % 7.8 % (4.4-11.3); NEUTROPHILS # (AUTO) 5.9 (2.1-6.9); NEUTROPHILS % 70.3 % (38.7-80.0); PLATELET COUNT 356 x10e3/uL (140-360); RED BLOOD COUNT 3.63 x10e6/uL (4.3-5.7); RED CELL DISTRIBUTION WIDTH 15.4 % (11.7-14.4); WHITE BLOOD COUNT 8.37 x10e3/uL (4.8-10.8)
[2024-10-03 06:03] LABS: ANION GAP 15.8 mmol/L (8-16); CALCIUM 8.6 mg/dL (8.4-10.2); CREATININE, SERUM 0.85 mg/dL (0.72-1.25); POTASSIUM 3.8 mmol/L (3.5-5.1)
[2024-10-03 06:10] LABS: INR 1.24; PROTHROMBIN TIME 16.7 seconds (11.9-14.5)
[2024-10-03 06:47] LABS: TROPONIN I 0.042 ng/mL (0-0.300)
[2024-10-03] MEDS ORDERED: IRON SUCROSE 100 MG in SODIUM CHLORIDE 0.9% 100 ML IV SCH (09:00)
[2024-10-03] MEDS: LOSARTAN POTASSIUM 25 MG TAB PO SCH (10:20)
[2024-10-03] MEDS: ATORVASTATIN 40 MG TAB PO SCH (10:20)
[2024-10-03] MEDS: CYANOCOBALAMIN 1,000 MCG TAB PO SCH (10:21)
[2024-10-03] MEDS: WARFARIN SOD 2.5 MG TAB PO SCH (17:00)
[2024-10-03] MEDS: HEPARIN 25,000 UNIT/D5W 250ML 25,000 UNIT in DEXTROSE 5% 250ML 250 ML IV SCH (18:28)
[2024-10-03] MEDS: HEPARIN 25,000 UNIT/D5W 250ML 250 ML IV ONE (21:27)
[2024-10-04] VITALS (11 sets, daily range): BP systolic 125–133; BP diastolic 56–78; PULSE 68–79; RESP 17–20; TEMP 97.4–98; O2SAT 96–100
[2024-10-04] MEDS: HEPARIN 25,000 UNIT/D5W 250ML 25,000 UNIT in DEXTROSE 5% 250ML 250 ML IV SCH (04:23)
[2024-10-04 06:56] LABS: BASOPHILS # (AUTO) 0.1 (0.0-0.1); BASOPHILS % 1.2 % (0.0-1.0); EOSINOPHILS # (AUTO) 0.2 (0.0-0.4); EOSINOPHILS % 2.8 % (0.0-6.0); HEMATOCRIT 29.5 % (38.2-49.6); HEMOGLOBIN 9.4 g/dL (14.0-18.0); LYMPHOCYTES # (AUTO) 1.3 (1.0-3.2); LYMPHOCYTES % 19.2 % (18.0-39.1); MEAN CORPUSCULAR HEMOGLOBIN 25.1 pg (28-32); MEAN CORPUSCULAR HGB CONC 31.9 g/dL (31-35); MEAN CORPUSCULAR VOLUME 78.9 fL (81-99); MONOCYTES # (AUTO) 0.6 (0.2-0.8); NEUTROPHILS # (AUTO) 4.6 (2.1-6.9); NEUTROPHILS % 67.4 % (38.7-80.0); PLATELET COUNT 367 x10e3/uL (140-360); RED BLOOD COUNT 3.74 x10e6/uL (4.3-5.7); RED CELL DISTRIBUTION WIDTH 15.7 % (11.7-14.4); WHITE BLOOD COUNT 6.81 x10e3/uL (4.8-10.8)
[2024-10-04 07:38] LABS: INR 1.24; PROTHROMBIN TIME 16.7 seconds (11.9-14.5)
[2024-10-04 08:06] LABS: ANION GAP 12.7 mmol/L (8-16); CALCIUM 8.6 mg/dL (8.4-10.2); CREATININE, SERUM 0.93 mg/dL (0.72-1.25); POTASSIUM 3.7 mmol/L (3.5-5.1)
[2024-10-04] MEDS: IRON SUCROSE 100 MG in SODIUM CHLORIDE 0.9% 100 ML IV SCH (08:48)
[2024-10-05] VITALS (12 sets, daily range): BP systolic 123–142; BP diastolic 67–78; PULSE 63–77; RESP 17–20; TEMP 97.4–98.3; O2SAT 96–100
[2024-10-05] MEDS: HEPARIN 25,000 UNIT/D5W 250ML 250 ML IV SCH (03:44)
[2024-10-05 05:31] LABS: BASOPHILS # (AUTO) 0.1 (0.0-0.1); BASOPHILS % 1.5 % (0.0-1.0); EOSINOPHILS # (AUTO) 0.2 (0.0-0.4); EOSINOPHILS % 3.2 % (0.0-6.0); HEMATOCRIT 26.8 % (38.2-49.6); HEMOGLOBIN 8.4 g/dL (14.0-18.0); LYMPHOCYTES # (AUTO) 1.3 (1.0-3.2); LYMPHOCYTES % 19.2 % (18.0-39.1); MEAN CORPUSCULAR HEMOGLOBIN 25.1 pg (28-32); MEAN CORPUSCULAR HGB CONC 31.3 g/dL (31-35); MEAN CORPUSCULAR VOLUME 80.2 fL (81-99); MONOCYTES # (AUTO) 0.6 (0.2-0.8); MONOCYTES % 8.3 % (4.4-11.3); NEUTROPHILS # (AUTO) 4.6 (2.1-6.9); NEUTROPHILS % 67.2 % (38.7-80.0); PLATELET COUNT 327 x10e3/uL (140-360); RED BLOOD COUNT 3.34 x10e6/uL (4.3-5.7); RED CELL DISTRIBUTION WIDTH 15.9 % (11.7-14.4); WHITE BLOOD COUNT 6.78 x10e3/uL (4.8-10.8)
[2024-10-05 05:40] LABS: ANION GAP 11.8 mmol/L (8-16); CALCIUM 8.6 mg/dL (8.4-10.2); CREATININE, SERUM 0.85 mg/dL (0.72-1.25); POTASSIUM 3.8 mmol/L (3.5-5.1)
[2024-10-05 13:11] LABS: INR 1.44; PROTHROMBIN TIME 18.7 seconds (11.9-14.5)
[2024-10-05 17:53] LABS: HEMATOCRIT 27.4 % (38.2-49.6); HEMOGLOBIN 8.7 g/dL (14.0-18.0)
[2024-10-06] VITALS (9 sets, daily range): BP systolic 126–141; BP diastolic 64–83; PULSE 63–74; RESP 18–20; TEMP 97.5–97.9; O2SAT 98–100
[2024-10-06 06:14] LABS: BASOPHILS # (AUTO) 0.1 (0.0-0.1); BASOPHILS % 1.3 % (0.0-1.0); EOSINOPHILS # (AUTO) 0.2 (0.0-0.4); EOSINOPHILS % 3.2 % (0.0-6.0); HEMOGLOBIN 8.6 g/dL (14.0-18.0); LYMPHOCYTES # (AUTO) 1.4 (1.0-3.2); LYMPHOCYTES % 19.9 % (18.0-39.1); MEAN CORPUSCULAR HEMOGLOBIN 24.7 pg (28-32); MEAN CORPUSCULAR HGB CONC 30.7 g/dL (31-35); MEAN CORPUSCULAR VOLUME 80.5 fL (81-99); MONOCYTES # (AUTO) 0.7 (0.2-0.8); MONOCYTES % 9.5 % (4.4-11.3); NEUTROPHILS # (AUTO) 4.6 (2.1-6.9); NEUTROPHILS % 65.4 % (38.7-80.0); PLATELET COUNT 340 x10e3/uL (140-360); RED BLOOD COUNT 3.48 x10e6/uL (4.3-5.7); RED CELL DISTRIBUTION WIDTH 16.2 % (11.7-14.4); WHITE BLOOD COUNT 7.08 x10e3/uL (4.8-10.8)
[2024-10-06 06:29] LABS: INR 1.46; PROTHROMBIN TIME 18.9 seconds (11.9-14.5)
[2024-10-06 06:40] LABS: ANION GAP 11.9 mmol/L (8-16); CALCIUM 8.6 mg/dL (8.4-10.2); CREATININE, SERUM 0.85 mg/dL (0.72-1.25); POTASSIUM 3.9 mmol/L (3.5-5.1)
[2024-10-06] MEDS: WARFARIN SOD 5 MG TAB PO ONE (09:26)
[2024-10-07] VITALS (11 sets, daily range): BP systolic 122–160; BP diastolic 38–93; PULSE 63–99; RESP 17–20; TEMP 97.4–98.9; O2SAT 96–100
[2024-10-07 05:36] LABS: INR 1.67
[2024-10-07 05:39] LABS: BASOPHILS # (AUTO) 0.1 (0.0-0.1); BASOPHILS % 1.6 % (0.0-1.0); EOSINOPHILS # (AUTO) 0.2 (0.0-0.4); EOSINOPHILS % 3.6 % (0.0-6.0); HEMATOCRIT 27.8 % (38.2-49.6); HEMOGLOBIN 8.5 g/dL (14.0-18.0); LYMPHOCYTES # (AUTO) 1.3 (1.0-3.2); LYMPHOCYTES % 19.5 % (18.0-39.1); MEAN CORPUSCULAR HEMOGLOBIN 24.9 pg (28-32); MEAN CORPUSCULAR HGB CONC 30.6 g/dL (31-35); MEAN CORPUSCULAR VOLUME 81.5 fL (81-99); MONOCYTES # (AUTO) 0.7 (0.2-0.8); MONOCYTES % 9.8 % (4.4-11.3); NEUTROPHILS # (AUTO) 4.3 (2.1-6.9); NEUTROPHILS % 64.6 % (38.7-80.0); PLATELET COUNT 341 x10e3/uL (140-360); RED BLOOD COUNT 3.41 x10e6/uL (4.3-5.7); RED CELL DISTRIBUTION WIDTH 16.5 % (11.7-14.4); WHITE BLOOD COUNT 6.71 x10e3/uL (4.8-10.8)
[2024-10-07] MEDS: FUROSEMIDE INJ 10 MG/ML 4 ML VIAL IV SCH (14:34)
[2024-10-07] MEDS: WARFARIN SOD 2.5 MG TAB PO ONE (17:00)
[2024-10-08] VITALS (9 sets, daily range): BP systolic 110–135; BP diastolic 54–68; PULSE 62–83; RESP 16–20; TEMP 97.7–98.7; O2SAT 95–100
[2024-10-08 06:00] LABS: BASOPHILS # (AUTO) 0.1 (0.0-0.1); BASOPHILS % 1.8 % (0.0-1.0); EOSINOPHILS # (AUTO) 0.3 (0.0-0.4); EOSINOPHILS % 4.1 % (0.0-6.0); HEMATOCRIT 30.6 % (38.2-49.6); HEMOGLOBIN 9.2 g/dL (14.0-18.0); LYMPHOCYTES # (AUTO) 1.4 (1.0-3.2); LYMPHOCYTES % 19.7 % (18.0-39.1); MEAN CORPUSCULAR HEMOGLOBIN 25.1 pg (28-32); MEAN CORPUSCULAR HGB CONC 30.1 g/dL (31-35); MEAN CORPUSCULAR VOLUME 83.6 fL (81-99); MONOCYTES # (AUTO) 0.6 (0.2-0.8); NEUTROPHILS # (AUTO) 4.6 (2.1-6.9); PLATELET COUNT 348 x10e3/uL (140-360); RED BLOOD COUNT 3.66 x10e6/uL (4.3-5.7); RED CELL DISTRIBUTION WIDTH 17.2 % (11.7-14.4); WHITE BLOOD COUNT 7.11 x10e3/uL (4.8-10.8)
[2024-10-08 06:19] LABS: ANION GAP 13.9 mmol/L (8-16); CALCIUM 8.7 mg/dL (8.4-10.2); CREATININE, SERUM 0.95 mg/dL (0.72-1.25); POTASSIUM 3.9 mmol/L (3.5-5.1)
[2024-10-08 09:18] LABS: INR 1.64; PROTHROMBIN TIME 20.8 seconds (11.9-14.5)
[2024-10-08] MEDS: ASPIRIN 81 MG ENTERIC COATED PO SCH (09:51)
[2024-10-08] MEDS: WARFARIN SOD 5 MG TAB PO SCH (09:59)
[2024-10-08] MEDS: WARFARIN SOD 3 MG TAB PO ONE (17:18)
[2024-10-09] VITALS (12 sets, daily range): BP systolic 111–168; BP diastolic 61–83; PULSE 65–75; RESP 16–18; TEMP 97.6–98.2; O2SAT 96–100
[2024-10-09 06:07] LABS: BASOPHILS # (AUTO) 0.1 (0.0-0.1); BASOPHILS % 1.5 % (0.0-1.0); EOSINOPHILS # (AUTO) 0.3 (0.0-0.4); EOSINOPHILS % 3.7 % (0.0-6.0); HEMATOCRIT 31.5 % (38.2-49.6); HEMOGLOBIN 9.4 g/dL (14.0-18.0); LYMPHOCYTES # (AUTO) 1.4 (1.0-3.2); LYMPHOCYTES % 17.9 % (18.0-39.1); MEAN CORPUSCULAR HEMOGLOBIN 24.9 pg (28-32); MEAN CORPUSCULAR HGB CONC 29.8 g/dL (31-35); MEAN CORPUSCULAR VOLUME 83.6 fL (81-99); MONOCYTES # (AUTO) 0.8 (0.2-0.8); MONOCYTES % 10.2 % (4.4-11.3); NEUTROPHILS # (AUTO) 4.9 (2.1-6.9); NEUTROPHILS % 65.2 % (38.7-80.0); PLATELET COUNT 352 x10e3/uL (140-360); RED BLOOD COUNT 3.77 x10e6/uL (4.3-5.7); RED CELL DISTRIBUTION WIDTH 17.4 % (11.7-14.4); WHITE BLOOD COUNT 7.55 x10e3/uL (4.8-10.8)
[2024-10-09 06:23] LABS: INR 2.16; PROTHROMBIN TIME 25.7 seconds (11.9-14.5)
[2024-10-09] MEDS: WARFARIN SOD 5 MG TAB PO SCH (17:28)
[2024-10-10] VITALS (10 sets, daily range): BP systolic 126–146; BP diastolic 44–71; PULSE 67–79; RESP 18–20; TEMP 97.5–98.4; O2SAT 98–100
[2024-10-10 07:11] LABS: INR 2.09; PROTHROMBIN TIME 25.1 seconds (11.9-14.5)
[2024-10-10] MEDS: IRON-VITAMIN-MINERAL CAPSULE PO SCH (09:13)
[2024-10-10] MEDS: WARFARIN SOD 3 MG TAB PO ONE (17:44)
[2024-10-11] VITALS (7 sets, daily range): BP systolic 128–146; BP diastolic 56–73; PULSE 57–75; RESP 16–20; TEMP 97–98.2; O2SAT 95–100
[2024-10-11] MEDS: HEPARIN 25,000 UNIT/D5W 250ML 250 ML IV ONE (00:52)
[2024-10-11] MEDS ORDERED: HEPARIN 25,000 UNIT/D5W 250ML 25,000 UNIT in DEXTROSE 5% 250ML 250 ML IV SCH (08:30)
[2024-10-11 09:40] LABS: INR 2.48; PROTHROMBIN TIME 28.7 seconds (11.9-14.5)
[2024-10-11] MEDS: PANTOPRAZOLE SOD 40 MG TABEC PO SCH (17:11)
[2024-10-11] MEDS: WARFARIN SOD 3 MG TAB PO ONE (17:11)
[2024-10-12 05:42] LABS: BASOPHILS # (AUTO) 0.1 (0.0-0.1); BASOPHILS % 2.1 % (0.0-1.0); EOSINOPHILS # (AUTO) 0.3 (0.0-0.4); EOSINOPHILS % 4.8 % (0.0-6.0); HEMATOCRIT 32.9 % (38.2-49.6); HEMOGLOBIN 10.2 g/dL (14.0-18.0); LYMPHOCYTES # (AUTO) 1.4 (1.0-3.2); LYMPHOCYTES % 24.2 % (18.0-39.1); MEAN CORPUSCULAR HEMOGLOBIN 25.2 pg (28-32); MEAN CORPUSCULAR VOLUME 81.4 fL (81-99); MONOCYTES # (AUTO) 0.6 (0.2-0.8); MONOCYTES % 10.8 % (4.4-11.3); NEUTROPHILS # (AUTO) 3.2 (2.1-6.9); NEUTROPHILS % 57.2 % (38.7-80.0); PLATELET COUNT 300 x10e3/uL (140-360); RED BLOOD COUNT 4.04 x10e6/uL (4.3-5.7); RED CELL DISTRIBUTION WIDTH 16.7 % (11.7-14.4); WHITE BLOOD COUNT 5.63 x10e3/uL (4.8-10.8)
[2024-10-12 05:55] LABS: INR 2.52
[2024-10-12 09:14] VITALS: BP 155/70; PULSE 69; RESP 18; TEMP 97.7; O2SAT 100
[2024-10-12 09:31] VITALS: PULSE 69; RESP 18; O2SAT 100
[2024-10-12] MEDS: METOPROLOL SUCCINATE 25 MG TAB XL PO SCH (09:38)
[2024-10-12 09:56] VITALS: BP 155/70; PULSE 69; RESP 18; TEMP 97.7; O2SAT 100
[2024-10-12 14:24] VITALS: BP 155/72; PULSE 76; RESP 18; TEMP 97.3; O2SAT 100
[2024-10-12 16:00] VITALS: BP 135/74; PULSE 70; RESP 18; TEMP 97.7; O2SAT 100
== END 2024-10-12 15:50 | disposition home or self-care (01) | DRG 378 ==
LOC: ER 14:59 → ERHOLD 16:59 → MED/SURG2 18:09
PROVIDERS: ADMIT Internal Medicine; ATTEND Internal Medicine
PROC: 30233N1 Transfusion of Nonautologous Red Blood Cells into Peripheral Vein, Percutaneous Approach (ICD-10-PCS; 2024-10-01)
PROC: 0W3P8ZZ Control Bleeding in Gastrointestinal Tract, Via Natural or Artificial Opening Endoscopic (ICD-10-PCS; principal; 2024-10-02 16:25)
DX: K31.811 Angiodysplasia of stomach and duodenum with bleeding (principal); I50.22 Chronic systolic (congestive) heart failure; K26.4 Chronic or unspecified duodenal ulcer with hemorrhage; I11.0 Hypertensive heart disease with heart failure; E11.9 Type 2 diabetes mellitus without complications; E78.5 Hyperlipidemia, unspecified; D64.9 Anemia, unspecified; I25.10 Atherosclerotic heart disease of native coronary artery without angina pectoris; R53.81 Other malaise; Z79.01 Long term (current) use of anticoagulants; Z79.84 Long term (current) use of oral hypoglycemic drugs; Z79.02 Long term (current) use of antithrombotics/antiplatelets; Z79.82 Long term (current) use of aspirin; I25.2 Old myocardial infarction; Z95.5 Presence of coronary angioplasty implant and graft; Z95.1 Presence of aortocoronary bypass graft; Z95.2 Presence of prosthetic heart valve; Z87.891 Personal history of nicotine dependence; Z82.49 Family history of ischemic heart disease and other diseases of the circulatory system
CPT/HCPCS: 36415; 43239; 43255; 70450; 71045; 74174; 80048; 80053; 80061; 81001; 82550; 82607; 82728; 82746; 82948; 83036; 83540; 83735; 83880; 84100; 84443; 84466; 84484; 85014; 85018; 85025; 85045; 85610; 85730; 86850; 86900; 86920; 93005; 93306; 94799; 99252; 99284; J1756; J1938; J2003; J2470; J7040; J7050; P9016; Q9967